=== PATIENT | female | born 1965 | race Caucasian/White ===

== ENCOUNTER 2016-12-23 18:39 | Emergency (ER) | payer OTHER ==
[~2016-12-23] VITALS: Ht 175.3 cm; Wt 120.0 kg
[~2016-12-23 18:39] MED LIST: CTP1 PO; CYCL10TA6 PO; HYDR10TA52 PO; INSDGIPEN SC; LBR10 PO; LOSA100T66 PO; SIMV40TA2 PO
[2016-12-23 18:42] VITALS: TEMP 36.7; Ht 175.3 cm; Wt 120.0 kg
[2016-12-23] MEDS ORDERED: ONDANSETRON INJ 2 MG/ML 2 ML VIAL IV STA (19:05)
[2016-12-23] MEDS ORDERED: SODIUM CHLORIDE 0.9% 1000ML 1,000 ML IV STA (19:05)
[2016-12-23] MEDS ORDERED: CEFTRIAXONE SOD INJ 1 GM ADDVIAL IV STA (19:07)
[2016-12-23] MEDS ORDERED: OXYCODONE HCL IR 5 MG TAB (IMMEDIATE RELEASE) PO STA (19:07)
[2016-12-23 19:16] LABS: BASO % 0.6 %; BASO ABS # 0.06 K/uL (0-0.2); COMPLETE YES; EOS % 5.2 %; HEMATOCRIT 39.9 % (37-47); IG% 0.3 %; LYMPH % 19.7 %; LYMPH ABS # 2.04 K/uL (1.2-3.4); MEAN CELL VOLUME 83.6 fL (80-100); MEAN CORPUSCULAR HEMOGLOBIN 29.8 pg (25-34); MEAN CORPUSCULAR HGB CONC 35.6 g/dl (32-36); MEAN PLATELET VOLUME 11.8 fL (7.4-10.4); MONO % 4.9 %; NEUT % 69.3 %; PLATELET COUNT 236 K/uL (130-400); RED BLOOD COUNT 4.77 M/uL (4.2-5.4); WHITE BLOOD COUNT 10.33 K/uL (4.8-10.8)
[2016-12-23 19:27] LABS: PARTIAL THROMBOPLASTIN RATIO 1.2; PROTHROMBIN TIME (PATIENT) 10.6 SECONDS (9.0-12.0)
[2016-12-23] MEDS ORDERED: CYCL10TA7 PO (19:31)
[2016-12-23] MEDS ORDERED: LRS10 PO (19:31)
[2016-12-23 19:35] LABS: ALT/SGPT 23 U/L (12-78); BLOOD UREA NITROGEN 10 mg/dl (7-18); BUN/CREATININE RATIO 12.5 (10-20); C-REACTIVE PROTEIN 2.59 mg/dl (0-0.29); CALCIUM 8.8 mg/dl (8.5-10.1); CARBON DIOXIDE 34 mmol/L (21-32); CHLORIDE 95 mmol/L (98-107); CREATININE 0.81 mg/dl (0.60-1.20); GLUCOSE 229 mg/dl (70-99); POTASSIUM 3.6 mmol/L (3.5-5.1); SODIUM 133 mmol/L (136-145)
[2016-12-23 19:38] LABS: ALKALINE PHOSPHATASE 75 U/L (45-117); AST/SGOT 9 U/L (15-37); CKMB/CK RATIO 3.1 (0-3.0)
--- NOTE | 2016-12-23 19:38 | DIAGNOSTIC IMAGING REPORT ---
CHEST ONE VIEW PORTABLE CLINICAL HISTORY: Abdominal pain. Chest pain. COMPARISON STUDY: Chest radiograph May 29, 2015. FINDINGS: There is no pneumothorax or pleural effusion. Lung volumes are diminished. There are mild bilateral lower lung opacities. Cardiac size is normal. There is no evidence of pulmonary edema. IMPRESSION: Mild bilateral lower lung interstitial thickening and opacities. This favors atelectasis on this hypoventilatory study although an infectious process could appear similar. Electronically signed by: Reese Freed M.D. 12/23/2016 7:37 PM Dictated Date/Time: 12/23/2016 7:36 PM
[2016-12-23] MEDS ORDERED: CEPHALEXIN 500MG HOME PACK 1 EA BTL PO ONE (20:00)
[2016-12-23] MEDS ORDERED: OXYCODONE IR HOME PACK PO ONE (20:00)
[2016-12-23] MEDS ORDERED: CEPH500C2 PO (20:14)
[2016-12-23 20:20] VITALS: BP 153/95; PULSE 87; O2SAT 99
--- NOTE | 2016-12-23 20:54 | EMERGENCY ROOM VISIT NOTE ---
History Report prepared by Elian: Ondina Yo Under the Supervision of: Dr. Mike Curry D.O. First contact with patient: 18:57 Chief Complaint: CHEST PAIN Stated Complaint: INFECTED TOOTH CHEST PAIN History of Present Illness The patient is a 51 year old female who presents to the Emergency Room with complaints of intermittent substernal chest pain that started this morning. She describes the pain as a "tight squeezing." The patient denies any cardiac history. The patient rates her discomfort as a 9/10 in severity. She adds that she has an infection in her right upper tooth that became painful yesterday, but she noticed the infection starting a while ago. She has not contacted a dentist about it yet. She states that she took penicillin earlier this evening in an attempt to relieve the infection. She states that she thinks that she is still allergic to it because her bilateral hands are edematous and her mouth is starting to feel edematous. The patient denies experiencing fevers, trouble opening or closing her mouth, cough, and shortness of breath. She denies any history of tooth infections. The patient adds that she is on 20 mg of oxycodone every 6 hours at home. Source of History: patient Onset: this morning Position: chest (substernal) Symptom Intensity: 9/10 Quality: other ("tight squeezing") Timing: intermittent Associated Symptoms: No SOB, No cough, No fevers Note: right upper tooth infection, no trouble opening or closing mouth, edema in mouth , edema in bilateral hands Review of Systems See HPI for pertinent positives & negatives. A total of 10 systems reviewed and were otherwise negative. Past Medical & Surgical Medical Problems: (1) Asthma (2) Diabetes (3) Hernia (4) History of kidney disease (5) HTN (hypertension) Surgical Problems: (1) H/O: hysterectomy (2) History of appendectomy (3) History of cholecystectomy (4) History of hysterectomy (5) Hx of tonsillectomy (6) Previous section Family History Diabetes mellitus FH: cancer FH: gallbladder disease FH: heart disease FHx: cardiovascular disease Hypertension Kidney disease Kidney stones Social History Smoking Status: Former Smoker Alcohol Use: none Marital Status: Housing Status: lives with family Occupation Status: disabled Current/Historical Medications Scheduled Atenolol (Atenolol), 50 MG PO DAILY Cephalexin Monohydrate (Keflex), 500 MG PO QID Duloxetine HCl (Duloxetine HCl), 60 MG PO DAILY Gabapentin (Gabapentin), 800 MG PO TID Glipizide (Glipizide), 5 MG PO BID Hydrocortisone (Cortef), 10 MG PO DAILY Insulin Glargine (Lantus Solostar), 44 UNITS SC HS Insulin Regular (Human) (Novolin R U-100), 1 DOSE SC UD Levothyroxine Sodium (Levothyroxine Sodium), 25 MCG PO QAM Losartan Potassium & Hydrochlo (Losartan Potassium/Hydroc), 1 TAB PO DAILY Omeprazole (Prilosec), 20 MG PO BID Oxycodone Hcl (Oxycodone Hcl), 20 MG PO QID Scheduled PRN Baclofen (Baclofen), 10 MG PO BID PRN for Muscle Spasm Cyclobenzaprine HCl (Cyclobenzaprine HCl), 10 MG PO TID PRN for Muscle Spasm Allergies Coded Allergies: Clindamycin (Verified Allergy, Intermediate, swelling, 10/04/16) Penicillins (Verified Allergy, Intermediate, swelling, 10/04/16) Chlorhexidine (Verified Allergy, Mild, RASH, 10/04/16) Adhesives (Verified Allergy, Unknown, RED SKIN, 10/04/16) Iodinated Contrast Media (Verified Allergy, Unknown, "CONTRAST DYE ALLERGY ", 10/04/16) Sulfamethoxazole w/Trimethoprim (Verified Allergy, Unknown, SWELLING, 10/04) Acetaminophen (Unverified Adverse Reaction, Intermediate, upset stomach, 10/04/16) Citric Acid (Verified Adverse Reaction, Intermediate, VOMITING, 10/04/16) Morphine (Unverified Adverse Reaction, Intermediate, vomiting and dizziness, 10/04/16) Pt states just pill form, IV form has been successful Sodium Bicarbonate (Verified Adverse Reaction, Intermediate, VOMITING, 10/04/16) Propoxyphene (Verified Adverse Reaction, Mild, CRAMPING AND VOMITING, 10/04) Aspirin (Verified Adverse Reaction, Unknown, NAUSEATED, 10/04/16) Codeine (Verified Adverse Reaction, Unknown, DIZZINESS, 10/04/16) Pseudoephedrine (Verified Adverse Reaction, Unknown, DIZZINESS, 10/04/16) Triprolidine (Verified Adverse Reaction, Unknown, DIZZINESS, 10/04/16) Physical Exam Vital Signs Date Time Temp Pulse Resp B/P Pulse Ox O2 Delivery O2 Flow Rate FiO2 12/23/16 20:20 87 16 153/95 99 12/23/16 19:15 88 12/23/16 19:11 Room Air 12/23/16 18:42 36.7 86 18 148/96 99 Room Air Physical Exam GENERAL: Patient is awake, alert, and in no acute distress. Patient is mildly anxious appearing but overall comfortable. EYES: The conjunctivae are clear. The pupils are round and reactive. EARS, NOSE, MOUTH AND THROAT: The nose is without any evidence of any deformity. Mucous membranes are moist tongue is midline. Dental caries noted in the right upper gumline. There was not erythema of the gumline. Soft tissue swelling in gumline. No trismus or facial swelling noted. NECK: The neck is nontender and supple. RESPIRATORY: Normal respiratory effort is noted there is no evidence of wheezing rhonchi or rales CARDIOVASCULAR: Regular rate and rhythm noted there no murmurs rubs or gallops normal S1 normal S2 GASTROINTESTINAL: The abdomen is soft. Bowel sounds are present in all quadrants. Abdomen is nontender MUSCULOSKELETAL/EXTREMITIES: There is no evidence of gross deformity full range of motion is noted in the hips and shoulders SKIN: Diffuse erythema noted of skin. No pedal edema appreciated. There is no obvious evidence of any rash. There are no petechiae, pallor or cyanosis noted. NEUROLOGIC: Patient is awake alert and oriented x3 Medical Decision & Procedures ER Provider Diagnostic Interpretation: X-ray results as stated below per interpretation by me and the radiologist. CHEST ONE VIEW PORTABLE IMPRESSION: Mild bilateral lower lung interstitial thickening and opacities. This favors atelectasis on this hypoventilatory study although an infectious process could appear similar. Electronically signed by: Reese Freed M.D. 12/23/2016 7:37 PM Dictated Date/Time: 12/23/2016 7:36 PM Laboratory Results 12/23/16 19:08 Red Blood Count 4.77, Mean Corpuscular Volume 83.6, Mean Corpuscular Hemoglobin 29.8, Mean Corpuscular Hemoglobin Concent 35.6, Mean Platelet Volume 11.8, Neutrophils (%) (Auto) 69.3, Lymphocytes (%) (Auto) 19.7, Monocytes (%) (Auto) 4.9, Eosinophils (%) (Auto) 5.2, Basophils (%) (Auto) 0.6, Neutrophils # (Auto) 7.15, Lymphocytes # (Auto) 2.04, Monocytes # (Auto) 0.51, Eosinophils # (Auto) 0.54, Basophils # (Auto) 0.06 12/23/16 19:08 Test 12/23/16 19:08 White Blood Count 10.33 K/uL (4.8-10.8) Red Blood Count 4.77 M/uL (4.2-5.4) Hemoglobin 14.2 g/dL (12.0-16.0) Hematocrit 39.9 % (37-47) Mean Corpuscular Volume 83.6 fL (80-100) Mean Corpuscular Hemoglobin 29.8 pg (25-34) Mean Corpuscular Hemoglobin Concent 35.6 g/dl (32-36) Platelet Count 236 K/uL (130-400) Mean Platelet Volume 11.8 fL (7.4-10.4) Neutrophils (%) (Auto) 69.3 % Lymphocytes (%) (Auto) 19.7 % Monocytes (%) (Auto) 4.9 % Eosinophils (%) (Auto) 5.2 % Basophils (%) (Auto) 0.6 % Neutrophils # (Auto) 7.15 K/uL (1.4-6.5) Lymphocytes # (Auto) 2.04 K/uL (1.2-3.4) Monocytes # (Auto) 0.51 K/uL (0.11-0.59) Eosinophils # (Auto) 0.54 K/uL (0-0.5) Basophils # (Auto) 0.06 K/uL (0-0.2) RDW Standard Deviation 41.4 fL (36.4-46.3) RDW Coefficient of Variation 13.6 % (11.5-14.5) Immature Granulocyte % (Auto) 0.3 % Immature Granulocyte # (Auto) 0.03 K/uL (0.00-0.02) Erythrocyte Sedimentation Rate 37 mm/hr (0-21) Prothrombin Time 10.6 SECONDS (9.0-12.0) Prothromb Time International Ratio 1.0 (0.9-1.1) Activated Partial Thromboplast Time 30.2 SECONDS (21.0-31.0) Partial Thromboplastin Ratio 1.2 Anion Gap 4.0 mmol/L (3-11) Est Creatinine Clear Calc Drug Dose 116.4 ml/min Estimated GFR () 98.8 Estimated GFR (Non- 85.3 BUN/Creatinine Ratio 12.5 (10-20) Calcium Level 8.8 mg/dl (8.5-10.1) Total Bilirubin 0.5 mg/dl (0.2-1) Direct Bilirubin 0.1 mg/dl (0-0.2) Aspartate Amino Transf (AST/SGOT) 9 U/L (15-37) Alanine Aminotransferase (ALT/SGPT) 23 U/L (12-78) Alkaline Phosphatase 75 U/L (45-117) Total Creatine Kinase 65 U/L (26-192) Creatine Kinase MB 2.0 ng/ml (0.5-3.6) Creatine Kinase MB Ratio 3.1 (0-3.0) Troponin I < 0.015 ng/ml (0-0.045) C-Reactive Protein 2.59 mg/dl (0-0.29) Total Protein 7.2 gm/dl (6.4-8.2) Albumin 3.2 gm/dl (3.4-5.0) Lipase 71 U/L (73-393) Laboratory results per my review. Medications Administered Medications (Trade) Dose Ordered Sig/Violet Route Start Time Stop Time Status Last Admin Dose Admin Sodium Chloride (Nss 1000ml) 1,000 ml @ 999 mls/hr Q1H1M STAT IV 12/23/16 19:05 12/23/16 20:05 DC 12/23/16 19:05 999 MLS/HR Ondansetron HCl (Zofran Inj) 4 mg NOW STAT IV 12/23/16 19:05 12/23/16 19:06 DC 12/23/16 19:19 4 MG Ceftriaxone Sodium (Rocephin Inj) 1 gm NOW STAT IV 12/23/16 19:07 12/23/16 19:09 DC 12/23/16 19:19 1 GM Oxycodone HCl (Roxicodone Immediate Rel Tab) 5 mg NOW STAT PO 12/23/16 19:07 12/23/16 19:09 DC 12/23/16 19:19 5 MG Cephalexin Monohydrate (Keflex 500MG Home Pack) 1 homepack NOW ONCE PO 12/23/16 20:00 12/23/16 20:01 DC 12/23/16 20:09 1 HOMEPACK Oxycodone HCl (Roxicodone Immediate Rel 5MG Home Pack) 1 homepack UD ONCE PO 12/23/16 20:00 12/23/16 20:01 DC 12/23/16 20:09 1 HOMEPACK ECG Indication: chest pain Rate (beats per minute): 79 Rhythm: normal sinus Findings: no ectopy, other (no acute ST segment abnormalities) Comparison ECG Date: 10/18/2013 Change: no significant change ED Course 1901: The patient was evaluated in room B4. A complete history and physical examination were performed. 1904: Ordered Zofran Inj 4 mg IV, NSS 1,000 ml @ 999 mls/hr IV 1906: Ordered Oxycodone HCl 5 mg PO, Rocephin Inj 1 gm IV 1955: Upon reevaluation, the patient is doing well. I discussed the results and treatment plan with her. She verbalized agreement of the treatment plan. She was discharged home. 1999: Ordered Oxycodone HCl 1 homepack PO, Cephalexin Monohydrate 1 homepack PO Medical Decision Prior records/ancillary studies reviewed. Triage Nursing notes reviewed. The patient's history was concerning for chest pain. Differential diagnosis: Etiologies such as cardiac ischemia, aortic dissection, pulmonary embolism, pneumonia, pneumothorax, musculoskeletal, infections, pericarditis, myocarditis , esophageal rupture, gastrointestinal, as well as others were entertained. The patient is a 51-year-old female who presented to the emergency department for an evaluation of multiple complaints. She states that she started noticing dental pain in her right upper gumline. She states that she has some ental caries in this area but recently fractured one of the teeth. She states that she 's took some penicillin to try to help with this dental problem but states that she is allergic to penicillin and started having flushing and chest discomfort. The patient's chest discomfort does not appear to be cardiac in nature. Her EKG did not show any acute abnormality and her cardiac biomarkers were negative despite having ongoing pain for quite some time. I discussed the patient's laboratory and radiographic studies with her. She was treated with IV antibiotics and IV fluids in the emergency department. On subsequent reevaluation she was feeling somewhat better. She was encouraged to rest and avoid any strenuous activity. She was encouraged to call her family as well as her primary dentist for reevaluation. She also was encouraged to return to the emergency department immediately if symptoms change worsen or the need arises. [place] Drug Monitoring Program Search Results: patient reviewed within database Impression Primary Impression: Dental caries Additional Impressions: Pain due to dental caries Allergic reaction Substernal chest pain Scribe Attestation The scribe's documentation has been prepared under my direction and personally reviewed by me in its entirety. I confirm that the note above accurately reflects all work, treatment, procedures, and medical decision making performed by me. Departure Information Dispostion Home / Self-Care Prescriptions Cephalexin Monohydrate (KEFLEX) 500 Mg Cap 500 MG PO QID, #28 CAP Prov: Mike Curry, DO 12/23/16 Referrals Shin Royal M.D. (PCP) Forms HOME CARE DOCUMENTATION FORM, IMPORTANT VISIT INFORMATION Patient Instructions [facility] Additional Instructions Continue all medications as prescribed. Continue using the antibiotic as prescribed. Call your dentist in the morning to schedule a follow-up appointment. Rest and avoid any strenuous activity. Problem Qualifiers Additional Impressions: Allergic reaction Encounter type: initial encounter Qualified Codes: T78.40XA - Allergy, unspecified, initial encounter
[2016-12-23] MEDS ORDERED: INSUINJ7 SC (21:32)
[2016-12-23] MEDS ORDERED: NRN800 PO (21:32)
[2016-12-23] MEDS ORDERED: GLC5 PO (21:32)
[2016-12-23] MEDS ORDERED: OMEP20CA9 PO (21:32)
[2016-12-23] MEDS ORDERED: OXYC20TA32 PO (21:32)
[2016-12-23] MEDS ORDERED: LEVO25TA5 PO (21:32)
[2016-12-23] MEDS ORDERED: TNR50 PO (21:32)
[2016-12-23] MEDS ORDERED: CYM60 PO (21:32)
== END 2016-12-23 20:22 | disposition home or self-care (01) ==
LOC: C.EDB 18:41
DX: T78.40XA Allergy, unspecified, initial encounter (principal); X58.XXXA Exposure to other specified factors, initial encounter; K02.9 Dental caries, unspecified; J45.909 Unspecified asthma, uncomplicated; E11.9 Type 2 diabetes mellitus without complications; I10 Essential (primary) hypertension; Z90.49 Acquired absence of other specified parts of digestive tract; Z90.710 Acquired absence of both cervix and uterus; Z83.3 Family history of diabetes mellitus; Z82.49 Family history of ischemic heart disease and other diseases of the circulatory system; Z87.891 Personal history of nicotine dependence; Z79.4 Long term (current) use of insulin; Z79.899 Other long term (current) drug therapy

== ENCOUNTER → 2017-01-09 | Outpatient (CLI) | payer OTHER ==
[~2017-01-09] MED LIST changes: +CEPH500C2 PO; +CIPR-255 PO; -CTP1 PO; -CYCL10TA6 PO; +CYCL10TA7 PO; +CYM60 PO; +DOCU-94 PO; +DULA1INJ INJ; +GLC5 PO; +INSUINJ7 SC; -LBR10 PO; +LEVO25TA5 PO; +LRS10 PO; +METR-162 PO; +NAPR375T3 PO; +NRN800 PO; +NRT25 PO; +OMEP20CA9 PO; +ONDA4TAB10 SL; +OXYC20TA32 PO; -SIMV40TA2 PO; +SRVDIN60 PO; +TNR50 PO; +VNTHFA/IN PO
[2017-01-09 12:32] LABS: ESTIMATED AVERAGE GLUCOSE 229 mg/dl; HA1C FLAG Normal (Normal)
== END | disposition home or self-care (01) ==
LOC: C.LAB1850 10:51
PROVIDERS: ATTEND Nurse Practitioner Family
DX: E11.9 Type 2 diabetes mellitus without complications (principal)

== ENCOUNTER 2017-06-03 04:08 | Emergency (ER) | payer OTHER ==
[~2017-06-03] VITALS: Ht 175.3 cm; Wt 119.0 kg
[~2017-06-03 04:08] MED LIST changes: -CIPR-255 PO; -DOCU-94 PO; -DULA1INJ INJ; -METR-162 PO; -NAPR375T3 PO; -NRT25 PO; -ONDA4TAB10 SL; -SRVDIN60 PO; -VNTHFA/IN PO
[2017-06-03 04:13] VITALS: TEMP 36.7; Ht 175.3 cm; Wt 119.0 kg
[2017-06-03] MEDS ORDERED: ONDANSETRON INJ 2 MG/ML 2 ML VIAL IV STA (04:31)
[2017-06-03] MEDS ORDERED: PANTOprazole SOD 40 MG TAB PO STA (04:31)
[2017-06-03] MEDS ORDERED: SODIUM CHLORIDE 0.9% 1000ML 1,000 ML IV ONE (04:45)
[2017-06-03 04:57] LABS: BASO % 0.2 %; BASO ABS # 0.04 K/uL (0-0.2); COMPLETE YES; EOS % 3.2 %; IG% 0.2 %; LYMPH % 10.8 %; LYMPH ABS # 1.92 K/uL (1.2-3.4); MEAN CELL VOLUME 86.3 fL (80-100); MEAN CORPUSCULAR HEMOGLOBIN 29.1 pg (25-34); MEAN CORPUSCULAR HGB CONC 33.7 g/dl (32-36); MEAN PLATELET VOLUME 12.3 fL (7.4-10.4); MONO % 7.9 %; NEUT % 77.7 %; PLATELET COUNT 250 K/uL (130-400); RED BLOOD COUNT 4.75 M/uL (4.2-5.4); WHITE BLOOD COUNT 17.78 K/uL (4.8-10.8)
[2017-06-03] MEDS ORDERED: NAPR375T3 PO (05:06)
[2017-06-03] MEDS ORDERED: DULA1INJ INJ (05:06)
[2017-06-03 05:07] LABS: PARTIAL THROMBOPLASTIN RATIO 1.2; PROTHROMBIN TIME (PATIENT) 10.7 SECONDS (9.0-12.0)
[2017-06-03] MEDS ORDERED: SRVDIN60 PO (05:09)
[2017-06-03] MEDS ORDERED: NRT25 PO (05:09)
[2017-06-03] MEDS ORDERED: VNTHFA/IN PO (05:09)
[2017-06-03 05:15] LABS: BUN/CREATININE RATIO 16.1 (10-20); CALCIUM 9.2 mg/dl (8.5-10.1); CREATININE 1.1 mg/dl (0.60-1.20); MAGNESIUM 2.2 mg/dl (1.8-2.4); POTASSIUM 3.8 mmol/L (3.5-5.1)
[2017-06-03 05:18] LABS: ALB/GLOB RATIO 0.8 (0.9-2)
--- NOTE | 2017-06-03 05:32 | EMERGENCY ROOM VISIT NOTE ---
ED Visit Note First contact with patient: 04:16 I did evaluate and examine this patient myself. I did guide management for the patient. I agree with the APC's assessment as discussed. Please see the APC's dictation for further details. I did independently review the CT scan and blood work. The patient had an elevated white blood cell count and colitis on CT scanning. She did not wish to be hospitalized. She was discharged with Cipro and Flagyl.
[2017-06-03] MEDS ORDERED: OXYCODONE HCL IR 5 MG TAB (IMMEDIATE RELEASE) PO STA (06:14)
[2017-06-03] MEDS ORDERED: CIPROFLOXACIN 500 MG TAB PO STA (06:14)
[2017-06-03] MEDS ORDERED: METRONIDAZOLE 250 MG TAB PO STA (06:14)
[2017-06-03] MEDS ORDERED: DOCU-94 PO (06:21)
[2017-06-03] MEDS ORDERED: ONDA4TAB10 SL (06:21)
[2017-06-03] MEDS ORDERED: METR-162 PO (06:21)
[2017-06-03] MEDS ORDERED: CIPR-255 PO (06:21)
[2017-06-03 06:31] VITALS: BP 136/83; PULSE 84; O2SAT 98
--- NOTE | 2017-06-03 06:36 | DIAGNOSTIC IMAGING REPORT ---
CT OF THE ABDOMEN AND PELVIS WITHOUT CONTRAST CLINICAL HISTORY: Abdominal pain. multiple surgeries. COMPARISON STUDY: CT of the abdomen and pelvis April 01, 2013 and abdominal series May 29, 2015. TECHNIQUE: Axial images of the abdomen and pelvis were obtained without IV contrast. Images were reviewed in the axial, sagittal, and coronal planes. A dose lowering technique was utilized adhering to the principles of ALARA. FINDINGS: There is no biliary ductal dilatation status post cholecystectomy. Unenhanced images of the liver, spleen, adrenal glands and pancreas are unremarkable. There are stable postoperative findings consistent with a partial nephrectomy with postoperative findings within the midpole of the left kidney. No enlarged abdominal or pelvic lymph nodes are present. There is no evidence for a bowel obstruction. There are findings consistent with a prior ventral hernia repair with mesh in at least 2 locations. Note is made of moderate wall thickening and moderate pericolonic infiltration of the descending colon. There is no free air, pneumatosis or portal venous gas. The appendix is not visualized. There is no right lower quadrant inflammation. There are no suspicious skeletal lesions. IMPRESSION: 1. Moderate wall thickening and pericolonic infiltration of the descending colon. This represents a nonspecific colitis. Differential considerations include infectious, ischemic and inflammatory etiologies. No free air, pneumatosis or portal venous gas. 2. Stable postoperative findings consistent with a partial left nephrectomy. Electronically signed by: Reese Freed M.D. 06/03/2017 6:35 AM Dictated Date/Time: 06/03/2017 6:30 AM
--- NOTE | 2017-06-04 00:23 | EMERGENCY ROOM VISIT NOTE ---
History First contact with patient: 04:16 Chief Complaint: GI ASSESSMENT Stated Complaint: BAD PAIN IN BOWELS AND BLOOD Nursing Triage Summary: c/o abd pain and " trouble with my bowels since sat." History of Present Illness The patient is a 52 year old female who presents to the Emergency Room with complaints of slowly worsening abdominal pain over the past 3-4 days. She states this is accompanied by difficulty moving her bowels. She is usually regular, but states that she has not had a bowel movement in 3-4 days. The patient is on chronic oxycodone, but this has not significantly improved her symptoms. She states that yesterday she did pass a small blood clot in her stool, which is atypical for her. She does not have a history of inflammatory bowel disease. The patient is nauseated and does have a history of multiple abdominal surgeries in the past. She rates her discomfort an 8/10. She does not identify aggravating or alleviating factors. Review of Systems More than 10 systems were reviewed and otherwise negative with the exception of history of present illness. Past Medical/Surgical History Medical Problems: (1) Asthma (2) Diabetes (3) Hernia (4) History of kidney disease (5) HTN (hypertension) Surgical Problems: (1) H/O: hysterectomy (2) History of appendectomy (3) History of cholecystectomy (4) History of hysterectomy (5) Hx of tonsillectomy (6) Previous section Family History Diabetes mellitus FH: cancer FH: gallbladder disease FH: heart disease FHx: cardiovascular disease Hypertension Kidney disease Kidney stones Social History Smoking Status: Never Smoker Alcohol Use: none Marital Status: Housing Status: lives with family Occupation Status: disabled Current/Historical Medications Scheduled Atenolol (Atenolol), 50 MG PO DAILY Ciprofloxacin Hcl (Cipro), 500 MG PO BID Cyclobenzaprine HCl (Cyclobenzaprine HCl), 10 MG PO BID Docusate Sodium (Colace), 1 CAP PO BID Dulaglutide (Trulicity), 1 DOSE INJ WK Duloxetine HCl (Duloxetine HCl), 60 MG PO DAILY Gabapentin (Gabapentin), 800 MG PO TID Hydrocortisone (Cortef), 10 MG PO DAILY Insulin Glargine (Lantus Solostar), 65 UNITS SC HS Insulin Regular (Human) (Novolin R U-100), 1 DOSE SC UD Levothyroxine Sodium (Levothyroxine Sodium), 25 MCG PO QAM Losartan Potassium & Hydrochlo (Losartan Potassium/Hydroc), 1 TAB PO DAILY Metronidazole (Flagyl), 500 MG PO TID Naproxen (Naproxen), 375 MG PO BID Omeprazole (Prilosec), 20 MG PO BID Ondasetron Odt (Zofran Odt), 4 MG SL Q6H Salmeterol Xinafoate (Serevent Diskus), 2 PUFF PO DAILY Scheduled PRN Albuterol Hfa (Ventolin Hfa), 2 PUFFS PO QID PRN for SOB/Wheezing Nortriptyline HCl (Nortriptyline HCl), 25 MG PO UD PRN for Pain Oxycodone Hcl (Oxycodone Hcl), 20 MG PO QID PRN for Pain Physical Exam Vital Signs Date Time Temp Pulse Resp B/P (MAP) Pulse Ox O2 Delivery O2 Flow Rate FiO2 06/03/17 06:31 84 18 136/83 98 06/03/17 04:13 36.7 89 18 136/77 95 Room Air Pain Rating (0-10): 0 Physical Exam VITALS: Vitals are noted on the nurse's note and reviewed by myself. Vital signs stable. GENERAL: Well-developed, well-nourished, white female who is in mild discomfort secondary to her stated complaint. Patient is cooperative with the examination. HEAD: Normocephalic atraumatic. HEART: Regular rate and rhythm without murmurs gallops or rubs. LUNGS: Clear to auscultation bilaterally without wheezes, rales or rhonchi. No retractions or accessory muscle use. ABDOMEN: Positive normal bowel sounds x 4. Soft with generalized abdominal tenderness that appears worse on the left side abdomen. No CVA tenderness. MUSCULOSKELETAL: No muscle atrophy, erythema, or edema noted. Full range of motion without joint tenderness in all extremities. Medical Decision & Procedures ER Provider Diagnostic Interpretation: CT OF THE ABDOMEN AND PELVIS WITHOUT CONTRAST CLINICAL HISTORY: Abdominal pain. multiple surgeries. COMPARISON STUDY: CT of the abdomen and pelvis April 01, 2013 and abdominal series May 29, 2015. TECHNIQUE: Axial images of the abdomen and pelvis were obtained without IV contrast. Images were reviewed in the axial, sagittal, and coronal planes. A dose lowering technique was utilized adhering to the principles of ALARA. FINDINGS: There is no biliary ductal dilatation status post cholecystectomy. Unenhanced images of the liver, spleen, adrenal glands and pancreas are unremarkable. There are stable postoperative findings consistent with a partial nephrectomy with postoperative findings within the midpole of the left kidney. No enlarged abdominal or pelvic lymph nodes are present. There is no evidence for a bowel obstruction. There are findings consistent with a prior ventral hernia repair with mesh in at least 2 locations. Note is made of moderate wall thickening and moderate pericolonic infiltration of the descending colon. There is no free air, pneumatosis or portal venous gas. The appendix is not visualized. There is no right lower quadrant inflammation. There are no suspicious skeletal lesions. IMPRESSION: 1. Moderate wall thickening and pericolonic infiltration of the descending colon. This represents a nonspecific colitis. Differential considerations include infectious, ischemic and inflammatory etiologies. No free air, pneumatosis or portal venous gas. 2. Stable postoperative findings consistent with a partial left nephrectomy. Laboratory Results 06/03/17 04:38 Red Blood Count 4.75, Mean Corpuscular Volume 86.3, Mean Corpuscular Hemoglobin 29.1, Mean Corpuscular Hemoglobin Concent 33.7, Mean Platelet Volume 12.3, Neutrophils (%) (Auto) 77.7, Lymphocytes (%) (Auto) 10.8, Monocytes (%) (Auto) 7.9, Eosinophils (%) (Auto) 3.2, Basophils (%) (Auto) 0.2, Neutrophils # (Auto) 13.80, Lymphocytes # (Auto) 1.92, Monocytes # (Auto) 1.41, Eosinophils # (Auto) 0.57, Basophils # (Auto) 0.04 06/03/17 04:38 Test 06/03/17 04:38 White Blood Count 17.78 K/uL (4.8-10.8) Red Blood Count 4.75 M/uL (4.2-5.4) Hemoglobin 13.8 g/dL (12.0-16.0) Hematocrit 41.0 % (37-47) Mean Corpuscular Volume 86.3 fL (80-100) Mean Corpuscular Hemoglobin 29.1 pg (25-34) Mean Corpuscular Hemoglobin Concent 33.7 g/dl (32-36) Platelet Count 250 K/uL (130-400) Mean Platelet Volume 12.3 fL (7.4-10.4) Neutrophils (%) (Auto) 77.7 % Lymphocytes (%) (Auto) 10.8 % Monocytes (%) (Auto) 7.9 % Eosinophils (%) (Auto) 3.2 % Basophils (%) (Auto) 0.2 % Neutrophils # (Auto) 13.80 K/uL (1.4-6.5) Lymphocytes # (Auto) 1.92 K/uL (1.2-3.4) Monocytes # (Auto) 1.41 K/uL (0.11-0.59) Eosinophils # (Auto) 0.57 K/uL (0-0.5) Basophils # (Auto) 0.04 K/uL (0-0.2) RDW Standard Deviation 44.2 fL (36.4-46.3) RDW Coefficient of Variation 14.1 % (11.5-14.5) Immature Granulocyte % (Auto) 0.2 % Immature Granulocyte # (Auto) 0.04 K/uL (0.00-0.02) Prothrombin Time 10.7 SECONDS (9.0-12.0) Prothromb Time International Ratio 1.0 (0.9-1.1) Activated Partial Thromboplast Time 31.7 SECONDS (21.0-31.0) Partial Thromboplastin Ratio 1.2 Anion Gap 7.0 mmol/L (3-11) Est Creatinine Clear Calc Drug Dose 84.4 ml/min Estimated GFR () 67.8 Estimated GFR (Non- 58.5 BUN/Creatinine Ratio 16.1 (10-20) Calcium Level 9.2 mg/dl (8.5-10.1) Magnesium Level 2.2 mg/dl (1.8-2.4) Total Bilirubin 0.5 mg/dl (0.2-1) Aspartate Amino Transf (AST/SGOT) 17 U/L (15-37) Alanine Aminotransferase (ALT/SGPT) 31 U/L (12-78) Alkaline Phosphatase 83 U/L (45-117) Total Protein 7.6 gm/dl (6.4-8.2) Albumin 3.3 gm/dl (3.4-5.0) Globulin 4.3 gm/dl (2.5-4.0) Albumin/Globulin Ratio 0.8 (0.9-2) Lipase 58 U/L (73-393) Medications Administered Medications (Trade) Dose Ordered Sig/Violet Route Start Time Stop Time Status Last Admin Dose Admin Sodium Chloride 1,000 ml @ 999 mls/hr Q1H1M ONCE IV 06/03/17 04:45 06/03/17 05:45 DC 06/03/17 04:48 999 MLS/HR Ondansetron HCl (Zofran Inj) 4 mg NOW STAT IV 06/03/17 04:31 06/03/17 04:34 DC 06/03/17 04:47 4 MG Pantoprazole Sodium (Protonix Tab) 40 mg NOW STAT PO 06/03/17 04:31 06/03/17 04:34 DC 06/03/17 04:46 40 MG Ciprofloxacin (Cipro Tab) 500 mg NOW STAT PO 06/03/17 06:14 06/03/17 06:17 DC 06/03/17 06:23 500 MG Metronidazole (Flagyl Tab) 500 mg NOW STAT PO 06/03/17 06:14 06/03/17 06:17 DC 06/03/17 06:23 500 MG Oxycodone HCl (Roxicodone Immediate Rel Tab) 15 mg NOW STAT PO 06/03/17 06:14 06/03/17 06:17 DC 06/03/17 06:23 15 MG ED Course Physical exam and history were performed. Nursing notes, EMR, and Medication List were personally reviewed. Patient appears to have left-sided abdominal pain with changes in her bowels over the past few days. The patient appears uncomfortable but not toxic. IV access was established and labs were obtained. She was hydrated and medicated as above. She has a history of multiple surgeries and because of this he did elect perform a CT scan of the abdomen and pelvis. The patient's blood work is as above and was reviewed. She does have an elevated white blood cell count of unknown cause. She does not have a significant anemia, bandemia, or gross electrolyte imbalance. Lipase and transaminases were nondiagnostic. CT scan shows a nonspecific colitis of the descending colon, which clinically does correlate with the patient's discomfort. Additionally she does have some increased stool in her colon. On reevaluation the patient felt better after hydration and antiemetics. She and I had a very lengthy conversation regarding her care. I did offer admission to the hospital she does have a white blood cell count elevation and colitis on CT. The patient had a preference for discharge home, and this appears reasonable assuming she is able to have close follow-up with her primary care physician. The patient was started on Cipro and Flagyl. She will be given Zofran and Colace as well. The patient should contact her PCP first thing this morning to arrange appropriate follow-up. She was thoroughly invited to return to the emergency department with a new, worsening, or concerning symptoms. She was pleased with this plan of first understanding. She rated her discomfort a 0/10 at the time of departure and was discharged home under the care of her male telephoto engineer who is acting as the driver service technician today. The chart was completed utilizing [employer] Speech Voice Recognition Software. Grammatical errors, random word insertions, pronoun errors, and incomplete sentences are an occasional consequence of this system due to software limitations, ambient noise, and hardware issues. Any formal questions or concerns about the content, text, or information contained within the body of this dictation should be directly addressed to the provider for clarification. . Medical Decision Differential diagnosis: Etiologies such as appendicitis, diverticulitis, PUD, biliary pathology, UTI, pancreatitis, obstruction, mesenteric ischemia, aortic pathology, infections, inflammatory bowel disease, renal colic, as well as others were entertained. Blood Pressure Screening Blood pressure disposition: Referred to PCP Impression Primary Impression: Colitis Departure Information Dispostion Home / Self-Care Condition FAIR Prescriptions Docusate Sodium (COLACE) 100 Mg Cap 1 CAP PO BID for 15 Days, #30 CAP Prov: Rc Wang PA-C 06/03/17 Ondasetron Odt (ZOFRAN ODT) 4 Mg Tab 4 MG SL Q6H for Nausea, #12 TAB Prov: Rc Wang PA-C 06/03/17 Metronidazole (FLAGYL) 500 Mg Tab 500 MG PO TID for 10 Days, #30 TAB Prov: Rc Wang PA-C 06/03/17 Ciprofloxacin Hcl (CIPRO) 500 Mg Tab 500 MG PO BID for 10 Days, #20 TAB Prov: Rc Wang PA-C 06/03/17 Forms HOME CARE DOCUMENTATION FORM, IMPORTANT VISIT INFORMATION Patient Instructions My [facility] Additional Instructions You were seen and evaluated today on an emergency basis only. This is not a substitute for, or an effort to provide, complete comprehensive medical care. It is not possible to recognize and treat all injuries or illnesses in a single emergency department visit. For this reason it is recommended that you followup with your primary care physician this week for ongoing care and evaluation. Call in the morning and let them know you were seen in the ER to help make an appointment. Ciprofloxacin(Cipro) 500mg: Take one pill twice daily for 10 days for your infection. All antibiotics can cause diarrhea. If this occurs and you feel worse or it does not resolve in 1-2 days follow up with your doctor or return to the Emergency Department as this could be signs of serious underlying problems. If you experience any pain in your tendons or any tendon injury return to the ER for re-evaluation. Any medication can cause an allergic reaction, stop the pills immediately and return to the ER for rash, hives, breathing difficulties, or swelling. Metronidazole(Flagyl) 500mg: Take one pill three times daily for 10 days for your infection. DO NOT drink alcohol or take alcohol containing products with this medication. Any medication can cause an allergic reaction, stop the pills immediately and return to the ER for rash, hives, breathing difficulties, or swelling. Zofran 1 tablet every 6 hrs as needed for nausea. Take Colace twice daily to help with passing a bowel movement You are welcome to return to the emergency department anytime with new, worsening, or concerning symptoms.
== END 2017-06-03 06:34 | disposition home or self-care (01) ==
LOC: C.EDB 04:09
DX: K52.9 Noninfective gastroenteritis and colitis, unspecified (principal); I12.9 Hypertensive chronic kidney disease with stage 1 through stage 4 chronic kidney disease, or unspecified chronic kidney disease; N18.9 Chronic kidney disease, unspecified; E11.9 Type 2 diabetes mellitus without complications; J45.909 Unspecified asthma, uncomplicated; Z90.710 Acquired absence of both cervix and uterus; Z90.49 Acquired absence of other specified parts of digestive tract; Z98.890 Other specified postprocedural states; Z79.4 Long term (current) use of insulin; Z79.899 Other long term (current) drug therapy; Z83.3 Family history of diabetes mellitus; Z80.9 Family history of malignant neoplasm, unspecified; Z83.79 Family history of other diseases of the digestive system; Z82.49 Family history of ischemic heart disease and other diseases of the circulatory system; Z84.1 Family history of disorders of kidney and ureter

== ENCOUNTER 2017-11-04 18:38 | Emergency (ER) | payer OTHER ==
[~2017-11-04] VITALS: Ht 175.3 cm; Wt 116.6 kg
[~2017-11-04 18:38] MED LIST changes: -CEPH500C2 PO; +CIPR-255 PO; -CYCL10TA7 PO; +DULA1INJ INJ; -GLC5 PO; -LEVO25TA5 PO; +LOSA100T30 PO; -LOSA100T66 PO; -LRS10 PO; +NAPR-1221 PO; -NRN800 PO; +NRT25 PO; -OMEP20CA9 PO; +ONDA4TAB10 SL; +SRVDIN60 PO; -TNR50 PO; +VNTHFA/IN PO
[2017-11-04 18:48] VITALS: TEMP 36.7; Ht 175.3 cm; Wt 116.6 kg
[2017-11-04] MEDS ORDERED: AMOX500C3 PO (19:15)
[2017-11-04] MEDS ORDERED: AMOXICILLIN HOME PACK 250 MG/TAB PO ONE (19:15)
[2017-11-04] MEDS ORDERED: CYCL10TA7 PO (19:31)
[2017-11-04] MEDS ORDERED: NVLGI/PEN SQ (19:32)
[2017-11-04] MEDS ORDERED: DULO60CA44 PO (19:32)
[2017-11-04] MEDS ORDERED: NARA2.5T2 PO (19:32)
[2017-11-04 19:34] VITALS: BP 146/89; PULSE 73; O2SAT 96
--- NOTE | 2017-11-04 19:46 | EMERGENCY ROOM VISIT NOTE ---
History First contact with patient: 18:50 Chief Complaint: BACK PAIN Stated Complaint: BACK PAIN AND TOOTH ACHE History of Present Illness The patient is a 52 year old female who presents to the Emergency Room with complaints of chronic lower back pain and right lower dental pain. The patient reports a history of chronic back pain. The patient reports that she most recently was seen at a pain clinic in [place]. One month ago, she was prescribed Dilaudid 4 mg tablets, but reports that she had nausea and vomiting with them. She did not call the clinic to advise them of this adverse reaction. The patient reports that she did not like their bedside manner, and did not plan to go back to them anyway. She reports that she was previously being treated at a pain clinic in [place], and elected to leave that practice as well because she was prescribed oxycodone and methadone at the same time. She was told that she should not take both medications at the same time. That was in May. The patient has not seen anyone for her chronic back pain between May and September when she was seen at [place]. The patient has had epidural steroid injections performed at the pain clinic in [place]. She denies any recent back injury, bladder/bowel incontinence, lower extremity weakness or saddle anesthesias. The patient also complains of right lower dental pain. She did have an appointment for this with [facility], however missed her appointment because of the recent of her mother. The patient has not been able to schedule an appointment with her dentist. She denies any difficulty swallowing, fevers or chills. She does report mild facial swelling. She admits to a history of a bad dental history. She rates her overall discomfort an 8 out of 10. Review of Systems 10 system review was performed and was negative except for pertinent positives and negatives as indicated in history of present illness Past Medical/Surgical History Medical Problems: (1) Asthma (2) Diabetes (3) Hernia (4) History of kidney disease (5) HTN (hypertension) Surgical Problems: (1) H/O: hysterectomy (2) History of appendectomy (3) History of cholecystectomy (4) History of hysterectomy (5) Hx of tonsillectomy (6) Previous section Family History Diabetes mellitus FH: cancer FH: gallbladder disease FH: heart disease FHx: cardiovascular disease Hypertension Kidney disease Kidney stones Social History Smoking Status: Never Smoker Alcohol Use: none Marital Status: Housing Status: lives with family Occupation Status: disabled Current/Historical Medications Scheduled Amoxicillin (Amoxil), 1 CAP PO TID Atenolol (Atenolol), 50 MG PO DAILY Cyclobenzaprine HCl (Cyclobenzaprine HCl), 10 MG PO BID Dulaglutide (Trulicity), 1 DOSE INJ WK Duloxetine Hcl (Cymbalta), 60 MG PO DAILY Gabapentin (Gabapentin), 800 MG PO TID Hydrocortisone (Cortef), 10 MG PO DAILY Insulin Aspart (Novolog Flexpen), SQ ACHS Insulin Glargine (Lantus Solostar), 75 UNITS SC HS Levothyroxine Sodium (Levothyroxine Sodium), 25 MCG PO QAM Losartan Potassium & Hydrochlo (Losartan Potassium/Hydroc), 1 TAB PO DAILY Omeprazole (Prilosec), 20 MG PO BID Ondasetron Odt (Zofran Odt), 4 MG SL Q6H Salmeterol Xinafoate (Serevent Diskus), 2 PUFF PO DAILY Scheduled PRN Albuterol Hfa (Ventolin Hfa), 2 PUFFS PO QID PRN for SOB/Wheezing Naratriptan Hcl (Amerge), 2.5 MG PO DAILY PRN for Physical Exam Vital Signs Date Time Temp Pulse Resp B/P (MAP) Pulse Ox O2 Delivery O2 Flow Rate FiO2 11/04/17 19:34 73 20 146/89 96 Room Air 11/04/17 18:48 36.7 82 20 150/92 100 Room Air Physical Exam CONSTITUTIONAL: Healthy and well nourished. Alert and oriented X 3 with positive affect. Patient does not appear in any acute distress. HEENT: Normocephalic, atraumatic. No facial edema or erythema noted. Pupils equal, round and reactive. Ears and nares are clear. OROPHARYNX: The patient has very poor dentition with multiple missing teeth, advanced gingivitis and dental decay. A right mandibular molar is significantly decayed to the gum level. There is no gingival fluctuance or pointing. LYMPHATICS: No submandibular, submental or cervical chain adenopathy. NECK: Full active range of motion without discomfort. RESPIRATORY: Clear to auscultation bilaterally with no wheezing, crackles, rhonchi or stridor. CARDIOVASCULAR: Regular rate and rhythm with no murmurs, rubs or gallops. MUSCULOSKELETAL: Examination shows generalized tenderness to palpation through the lower back region. Negative sitting straight leg raise. Pedal pulses are intact. Ankle plantar/dorsiflexion strength is 4 out of 5 and symmetric bilaterally. INTEGUMENTARY: No rash or other significant dermatologic conditions noted. NEUROLOGIC: Lower extremities are sensory intact. Facial sensations are intact. Medical Decision & Procedures Medications Administered Medications (Trade) Dose Ordered Sig/Violet Route Start Time Stop Time Status Last Admin Dose Admin Amoxicillin (Amoxil 250MG Home Pack) 1 homepack UD ONCE PO 11/04/17 19:15 11/04/17 19:20 DC 11/04/17 19:33 1 HOMEPACK ED Course Patient history and physical exam were performed. Nurse's notes were reviewed. Vital signs were reviewed, showing an elevated blood pressure 150/92. The patient is afebrile. The patient does not appear in any acute distress. I also reviewed the [place] Prescription Drug Monitoring Program, showing that the patient has received a prescription and's from the pain clinic in [place], as well as in [place]. Her last prescription fill was on 10/07/17 for Dilaudid 4 mg tablets, dispense 120 with no refills. The patient was advised that the emergency department would not provide any further opioid prescriptions. She was encouraged to contact her PCP or one of the pain clinics to discuss further pain management. The patient was in agreement, and voiced understanding of reasoning behind my decision. The patient was provided a prescription for amoxicillin 500 mg 3 times a day 10 days, as well as a home pack since her pharmacy is closed. It is noted that the patient reports an allergy to penicillin which causes swelling; however, she has taken amoxicillin in the past without adverse reaction. She may also take ibuprofen for additional baseline pain relief. The patient reports that she cannot tolerate Tylenol. The patient was happy with plan of care, voiced understanding of all discharge instructions, and rated her discomfort a 5 out of 10 at the conclusion of my exam. The patient was also instructed to follow-up with her PCP for blood pressure recheck. Medical Decision [place] Drug Monitoring Program Search Results: patient reviewed within database, see additional documentation Medication Reconcilliation Current Medication List: was personally reviewed by me Blood Pressure Screening Patient's blood pressure: Elevated blood pressure Blood pressure disposition: Referred to PCP Impression Primary Impression: Acute exacerbation of chronic low back pain Additional Impressions: Pain, dental Elevated blood pressure reading Departure Information Dispostion Home / Self-Care Prescriptions Amoxicillin (AMOXIL) 500 Mg Cap 1 CAP PO TID for 10 Days, #30 CAP Prov: Holden Nava PA 11/04/17 Referrals No Doctor, Assigned Forms HOME CARE DOCUMENTATION FORM, IMPORTANT VISIT INFORMATION Patient Instructions [facility] Additional Instructions Complete all amoxicillin antibiotics as prescribed: Amoxicillin 500 mg every 8 hours for 10 days. Ibuprofen 800 mg every 8 hours. Follow-up with a dentist for further definitive care. You will need to contact your pain clinic or family doctor as needed for further pain management. Problem Qualifiers
[2017-11-04] MEDS ORDERED: OMEP20CA9 PO (21:32)
[2017-11-04] MEDS ORDERED: NRN800 PO (21:32)
[2017-11-04] MEDS ORDERED: LEVO25TA5 PO (21:32)
[2017-11-04] MEDS ORDERED: TNR50 PO (21:32)
== END 2017-11-04 19:32 | disposition home or self-care (01) ==
LOC: C.EDB 18:39 → C.EDD 19:32
DX: M54.5 Low back pain (principal); K08.89 Other specified disorders of teeth and supporting structures; I10 Essential (primary) hypertension; G89.29 Other chronic pain; J45.909 Unspecified asthma, uncomplicated; E11.9 Type 2 diabetes mellitus without complications; Z79.4 Long term (current) use of insulin; Z83.3 Family history of diabetes mellitus; Z80.9 Family history of malignant neoplasm, unspecified; Z83.79 Family history of other diseases of the digestive system; Z82.49 Family history of ischemic heart disease and other diseases of the circulatory system; Z84.1 Family history of disorders of kidney and ureter

== ENCOUNTER 2020-09-13 11:20 | Observation (INO) ==
[2020-09-13] MEDS ORDERED: NITROGLYCERIN SL 0.4 MG/TAB TAB ONE (12:08)
[2020-09-13 12:17] LABS: Partial Thromboplastin Ratio 0.9; Partial Thromboplastin Time 25.6 Seconds (21.0-31.0); Prothrombin Time 10.9 Seconds (9.0-12.0)
[2020-09-13] MEDS ORDERED: ASPIRIN CHEW 324 MG PO STA (12:18)
[2020-09-13] MEDS ORDERED: ACETAMINOPHEN 500 MG TAB PO STA (12:19)
[2020-09-13] MEDS ORDERED: ONDANSETRON INJ 2 MG/ML 2 ML VIAL IV STA (12:19)
[2020-09-13 12:22] LABS: Alanine Aminotransferase 23 U/L (12-78); Aspartate Aminotransferase 10 U/L (15-37); BUN Creatinine Ratio 13.8 (10-20); Blood Urea Nitrogen 11 mg/dl (7-18); Calcium 8.8 mg/dl (8.5-10.1); Carbon Dioxide 26 mmol/L (21-32); Chloride 108 mmol/L (98-107); Creatinine Clr Calc Pharmacy 110.4 ml/min; Est GFR (African American) 100.6; Est GFR (Non-African American) 86.8; Glucose 189 mg/dl (70-99); Lipase 97 U/L (73-393); Potassium 3.4 mmol/L (3.5-5.1); Sodium 140 mmol/L (136-145)
[2020-09-13 12:27] LABS: Albumin Globulin Ratio 0.8 (0.9-2); Alkaline Phosphatase 57 U/L (45-117); Bilirubin,Total 0.3 mg/dl (0.2-1); Globulin 3.7 gm/dl (2.5-4.0); Total Protein 6.7 gm/dl (6.4-8.2); Troponin I < 0.015 ng/ml (0-0.045)
[2020-09-13] MEDS: NITROGLYCERIN 2% OINTMENT 30GM TUBE EXT SCH ×2 (12:27→17:10)
--- NOTE | 2020-09-13 12:28 | Electrocardiogram Report ---
Test Reason : Blood Pressure : / mmHG Vent. Rate : 079 BPM Atrial Rate : 079 BPM P-R Int : 142 ms QRS Dur : 080 ms QT Int : 370 ms P-R-T Axes : 036 048 025 degrees QTc Int : 424 ms Normal sinus rhythm Poor R wave progression, consider anterior TN vs. lead placement vs. LVH Abnormal ECG When compared with ECG of 23-DEC-2016 18:50, No significant change was found Confirmed by Mike Garcia ([id number]) on 09/13/2020 12:27:45 PM Referred By: ED Confirmed By:Mike Garcia
[2020-09-13 12:30] LABS: Basophils # (auto) 0.05 K/uL (0-0.2); Basophils % (auto) 0.7 %; Eosinophils # (auto) 0.43 K/uL (0-0.5); Eosinophils % (auto) 5.8 %; Hematocrit (blood only) 37.3 % (37-47); Hemoglobin 12.8 g/dL (12.0-16.0); Immature Granulocytes # (auto) 0.02 K/uL (0.00-0.02); Immature Granulocytes % (auto) 0.3 %; Lymphocytes # (auto) 1.87 K/uL (1.2-3.4); Lymphocytes % (auto) 25.2 %; Mean Corpuscular Hemoglobin 28.3 pg (25-34); Mean Corpuscular Hgb Conc 34.3 g/dL (32-36); Mean Corpuscular Volume 82.3 fL (80-100); Mean Platelet Volume 11.8 fL (7.4-10.4); Monocytes # (auto) 0.55 K/uL (0.11-0.59); Monocytes % (auto) 7.4 %; Neutrophils % (auto) 60.6 %; Platelet Count 246 K/uL (130-400); RDW Coefficient of Variation 13.6 % (11.5-14.5); RDW Standard Deviation 40.8 fL (36.4-46.3); Red Blood Count 4.53 M/uL (4.2-5.4); White Blood Count 7.42 K/uL (4.8-10.8)
--- NOTE | 2020-09-13 12:30 | XRay Report ---
XR chest 1V portable CLINICAL HISTORY: Atypical chest pain. COMPARISON STUDY: Chest radiograph March 06, 2020. FINDINGS: Lung volumes are normal. Lungs are clear. There is no pneumothorax or pleural effusion. Car diac size is normal. Mediastinal contours are normal. There is no evidence for pulmonary edema. IMPRESSION: No acute cardiopulmonary findings. ACT 112: Negative or not required by law. Electronically signed by: Reese Freed M.D. 09/13/2020 12:29 PM
[2020-09-13 12:53] LABS: Creatine Kinase MB 2.1 ng/ml (0.5-3.6)
[2020-09-13] MEDS ORDERED: POTASSIUM CHLORIDE CRTAB 20 MEQ TABCR PO STA (12:58)
[2020-09-13 13:10] LABS: D Dimer 880 ug/L FEU (0-500)
[2020-09-13] MEDS ORDERED: methylPREDNISolone 125 MG/2 ML VIAL IV STA (13:40)
[2020-09-13] MEDS ORDERED: FAMOTIDINE 20 MG in SYRINGE 3 ML IV STA (13:40)
[2020-09-13] MEDS ORDERED: diphenhydrAMINE 50 MG/ML VIAL IV STA (13:40)
--- NOTE | 2020-09-13 13:40 | History & Physical Report ---
Date of Service September 13, 2020 Assessment & Plan (1) Chest pain: Chest Pain: R/O ACS Risk factors: H/O HTN, DM II, Obesity Likely due to uncontrolled HTN Initial troponin:Negative EKG shows: Poor R wave progression, normal sinus rhythm CTA: No evidence of PE, consolidation, pleural effusion Trend serial cardiac enzymes, repeat EKG, fasting lipid panel in AM Continue NTG Start Aspirin Check ECHO Oxygen PRN NPO after midnight Cardiology consult Given ongoing chest pain, will start on IV heparin Hypertensive urgency Noncompliant with medications due to insurance Previously on losartan, clonidine, atenolol Currently not taking medications since 4 months We will start on losartan, metoprolol Also on nitroglycerin Labetalol as needed Elevated D-dimer CTA no signs of PE Venous Dopplers negative for DVT Hypokalemia Replete electrolytes as needed Check magnesium levels Splenic artery aneurysm Incidental finding on CT scan Unchanged from prior abdominal CT Follow-up as outpatient DM II Diabetic neuropathy Last HbA1C: 9.9 on 12/15/15 Noncompliant with medications secondary to insurance issues Previously on gabapentin, glipizide, NovoLog, Lantus Currently taking only NovoLog Poorly controlled Update HbA1c ISS, basal Insulin, Accu checks, Diabetic diet 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 Previously on hydrocortisone 10 mg daily Panic disorder JORGE Medical marijuana use Currently not on any medication Mood is stable GERD Continue PPI Hypothyroidism Previously on levothyroxine 25 mcg daily Check TSH, free T4 H/O Left RCC S/P resection DVT Px: IV Heparin Code Status Full Code Disposition Expected discharge home when medically stable History of Present Illness Chief Complaint: Chest Pain Primary Care Provider: Baldev Morelos MD Patient is a 55-year-old female with history of type 2 diabetes mellitus, Whitfield's disease, diabetic neuropathy, rosacea, panic disorder, migraine, and generalized anxiety disorder, medical marijuana use, hypertension, hypothyroidism, H/O Left RCC S/P resection and other medical problems presents with history of ongoing intermittent chest pain since 2 days ago. Patient described chest pain as" clenching type, gripping", retrosternal in location, mostly dull uncomfortable pain, radiates to left arm, neck and ears, worsens with exertion and improved with nitroglycerin, rest. She admits to being noncompliant with her home medications since at least 4 months secondary to insurance issues. She also states having uncontrolled blood sugar levels while at home due to not taking her long-acting insulin. She reports nausea, associated dyspnea, dizziness with chest pain. She also states having bilateral leg pain since past 2 to 3 weeks duration. Chest pain improved with nitroglycerin while in ED but patient developed headache. Denies any history of palpitations, diaphoresis, cough, hemoptysis, fever, chills, fall, double/blurry vision, vomiting, abdominal pain, change in appetite, dysuria. Currently she only takes omeprazole, Novolog and Albuterol as needed. Allergies Allergy/AdvReac Type Severity Reaction Status Date / Time clindamycin Allergy Intermediate swelling Verified 09/13/20 14:12 Penicillins Allergy Intermediate swelling Verified 09/13/20 14:12 chlorhexidine Allergy Mild RASH Verified 09/13/20 14:12 adhesive Allergy Unknown RED SKIN Verified 09/13/20 14:12 Bactrim Allergy Unknown SWELLING Verified 06/03/17 05:03 Iodinated Contrast Media Allergy Unknown "CONTRAST Verified 09/13/20 14:12 DYE ALLERGY" sulfamethoxazole Allergy Unknown SWELLING Verified 09/13/20 14:12 trimethoprim Allergy Unknown SWELLING Verified 09/13/20 14:12 acetaminophen AdvReac Intermediate upset Unverified 09/13/20 14:12 stomach citric acid AdvReac Intermediate VOMITING Verified 09/13/20 14:12 morphine AdvReac Intermediate vomiting Unverified 09/13/20 14:12 and dizziness sodium bicarbonate AdvReac Intermediate VOMITING Verified 09/13/20 14:12 propoxyphene AdvReac Mild CRAMPING Verified 09/13/20 14:12 AND VOMITING aspirin AdvReac Unknown NAUSEATED Verified 09/13/20 14:12 codeine AdvReac Unknown DIZZINESS Verified 09/13/20 14:12 pseudoephedrine AdvReac Unknown DIZZINESS Verified 09/13/20 14:12 triprolidine AdvReac Unknown DIZZINESS Verified 09/13/20 14:12 Home Medications Medication Instructions Recorded Confirmed Type albuterol sulfate 90 mcg/actuation 2 puffs INHALATION Q6H PRN #1 gm 06/04/19 09/13/20 History aerosol inhaler blood-glucose meter #1 ea 06/04/19 06/04/19 History lancets 30 gauge #25 ea 06/04/19 06/04/19 History insulin aspart U-100 100 unit/mL 6 units SUBCUT TIDM #5 ml 09/04/19 09/13/20 History (3 mL) subcutaneous pen omeprazole 20 mg capsule,delayed 20 mg PO QAM cap 09/04/19 09/13/20 History release Past Med/Surg History Medical History Asthma Colitis Diabetes History of kidney disease HTN (hypertension) Hyperglycemia Kidney malignancy Low back pain with sciatica Surgical History H/O: hysterectomy History of appendectomy History of cholecystectomy Hx of tonsillectomy Previous section S/P hernia repair Family History Father Hypertension Coronary heart disease Stroke Mother Hypertension Diabetes CHF (congestive heart failure) Social History Smoking Status: Heavy tobacco smoker Tobacco Type: Cigarettes Second Hand Exposure: No; Do You Dip or Chew Tobacco: No; Tobacco Cessation Education Requested by Patient: Yes Hx Alcohol Use: No Hx Substance Use: Yes Substance Use Type Other:: LEGAL MARIJUANA CARD Communication Ability: Effective Beliefs That Will Affect Care: None Current Living Situation: Spouse Feels Safe at Home: Yes Safety Concerns: Feels Safe At This Time Assistive Devices: Cane Review of Systems Review of Systems: All systems reviewed & are unremarkable except as noted in HPI & below Physical Exam Physical Exam: Physical Exam: Vitals signs as noted above General Appearance:Obese, no apparent distress Head: normocephalic, Atraumatic Eyes: normal inspection, EOMI Neck: supple, Trachea midline Respiratory/Chest: Normal breath sounds, CTA, No accessory muscle use Cardiovascular: S1, S2, No murmur Abdomen/GI:Soft, Non tender, Bowel sounds present Extremities/Musculoskelatal:normal inspection, Trace B/L LE edema Neurologic/Psych:AAOX3, grossly no focal neurological deficits Skin: normal color, warm Results & Data Results & Data ([facility]) Vital Signs (Past 12 Hours) Vital Signs Temp Pulse Resp BP Pulse Ox 09/13/20 13:00 82 20 130/88 96 09/13/20 12:32 79 21 147/89 H 09/13/20 12:07 83 15 156/97 H 99 09/13/20 12:00 87 24 98 09/13/20 11:50 81 23 147/101 H 98 09/13/20 11:39 96 09/13/20 11:34 85 21 97 09/13/20 11:26 93 H 16 172/100 H 97 09/13/20 11:22 36.8 C 88 12 172/100 H 96 Laboratory Results Short CBC 09/13/20 Range/Units 11:50 WBC 7.42 (4.8-10.8) K/uL Hgb 12.8 (12.0-16.0) g/dL Hct 37.3 (37-47) % Plt Count 246 (130-400) K/uL BMP 09/13/20 11:50 Sodium 140 Potassium 3.4 L Chloride 108 H Carbon Dioxide 26 BUN 11 Creatinine 0.78 Glucose 189 H Calcium 8.8 Cardiac Enzymes 09/13/20 09/13/20 Range/Units 11:50 11:50 Total Creatine Kinase 76 (26-192) U/L CK-MB (CK-2) 2.1 (0.5-3.6) ng/ml Troponin I < 0.015 (0-0.045) ng/ml Liver Function 09/13/20 Range/Units 11:50 Total Bilirubin 0.3 (0.2-1) mg/dl AST 10 L (15-37) U/L ALT 23 (12-78) U/L Alkaline Phosphatase 57 (45-117) U/L Albumin 3.0 L (3.4-5.0) gm/dl Diagnostic Findings CTA:There is no evidence of pulmonary embolus in the main, lobar, or segmental pulmonary arteries. There is no airspace consolidation or pleural effusion. There is a 1.4 cm peripherally calcified splenic artery aneurysm, unchanged from a previous abdominal CT scan. Venous Doppler:No evidence of deep venous thrombus within the left lower e xtremity. ECG Additional Comments: EKG: Normal sinus rhythm Poor R wave progression QTc 424 (1) Chest pain Chest pain type: unspecified Qualified Code(s): R07.9 - Chest pain, unspecified
[2020-09-13] MEDS ORDERED: SODIUM CHLORIDE 0.9% 500 ML IV ONE (13:41)
[2020-09-13] MEDS ORDERED: FAMOTIDINE 20MG/5ML IV PUSH IV ONE (14:09)
--- NOTE | 2020-09-13 14:15 | Ultrasound Report ---
LEFT LOWER EXTREMITY VENOUS DOPPLER CLINICAL HISTORY: Left leg swelling. COMPARISON STUDY: No previous studies for comparison. TECHNIQUE: Sonography of the deep venous system of the left lower extremity was performed. Compressi on and augmentation were evaluated. FINDINGS: The left common femoral, superficial femoral and popliteal veins were compressible. Augmen tation was normal. Flow was shown within the deep calf vessels. IMPRESSION: No evidence of deep venous thrombus within the left lower extremity. ACT 112: Negative or not required by law. Electronically signed by: Reese Freed M.D. 09/13/2020 2:14 PM
[2020-09-13] MEDS ORDERED: OPTIRAY 320 125ml IV ONE (14:32)
--- NOTE | 2020-09-13 14:43 | CT Scan Report ---
CT ANGIOGRAM OF THE CHEST CLINICAL HISTORY: Atypical chest pain. Left lower extremity edema. COMPARISON STUDY: Chest x-ray dated 09/13/2020. Abdominal CT dated 03/06/2020. TECHNIQUE: Following the IV administration of 120 cc of Optiray 320, CT angiogram of the chest was pe rformed from the upper abdomen to the thoracic inlet utilizing the pulmonary embolus protocol. Images are reviewed in the axial, sagittal, and coronal planes. 3-D MIPS images are created and assessed. I V contrast was administered without complication. The patient was premedicated for a reported history of contrast allergy. A dose lowering technique was utilized adhering to the principles of ALARA. CT DOSE: 874.57 mGy.cm FINDINGS: Thyroid: Mildly atrophic. Thoracic aorta: The thoracic aorta is normal in caliber and demonstrates standard 3-vessel arch anato my. No dissection is seen. Pulmonary vasculature: The pulmonary trunk is normal in caliber. There are no filling defects identif ied in main, lobar, or segmental pulmonary branches to suggest pulmonary embolus. Heart: The heart is normal in size and without pericardial effusion. Lungs and pleural spaces: The lungs and pleural spaces are clear noting bibasilar atelectasis. The tr achea and central airways are patent. Mediastinum: There is no mediastinal lymphadenopathy. Lida: Clear. Axillae: There is no axillary lymphadenopathy. Upper abdomen: There is a tiny hiatal hernia. A 1.4 cm peripherally calcified splenic artery aneurysm is seen on image #33. Skeletal structures: No lytic or blastic bony lesions are seen. IMPRESSION: 1. There is no evidence of pulmonary embolus in the main, lobar, or segmental pulmonary arteries. 2. There is no airspace consolidation or pleural effusion. 3. There is a 1.4 cm peripherally calcified splenic artery aneurysm, unchanged from a previous abdomi nal CT scan. ACT 112: Negative or not required by law. Electronically signed by: Tremayne Arnold M.D. 09/13/2020 2:41 PM
[2020-09-13] MEDS ORDERED: INFLUENZA ADMINISTRATION CHARGE ONE (16:30)
[2020-09-13] MEDS ORDERED: INFLUENZA VIRUS QUAD VACCINE 0.5 ML SYR IM ONE (16:30)
[2020-09-13] MEDS ORDERED: ACETAMINOPHEN 325 MG TAB PO PRN (16:38)
[2020-09-13] MEDS ORDERED: GLUCAGON FOR INJ 1 MG VIAL SQ PRN (16:38)
[2020-09-13] MEDS ORDERED: GLUCOSE 10 TABS/TUBE PO PRN (16:38)
[2020-09-13] MEDS ORDERED: GLUCOSE 40% GEL 15 GM TUBE PO PRN (16:38)
[2020-09-13] MEDS ORDERED: DEXTROSE 50% 50 ML SYRINGE IV PRN (16:38)
[2020-09-13] MEDS ORDERED: CARBOHYDRATES FOR HYPOGLYCEMIA PO PRN (16:38)
[2020-09-13] MEDS ORDERED: MoRPHine SULFATE 2 MG/ML CARP IV ONE (16:39)
[2020-09-13] MEDS ORDERED: MoRPHine SULFATE 2 MG/ML CARP ONE (16:41)
--- NOTE | 2020-09-13 16:51 | Emergency Department Note ---
History of Present Illness General Chief Complaint: Chest Pain Stated Complaint: CHEST PAIN Time Seen by Provider: 09/13/20 12:00 Source: patient, EMS, RN notes reviewed and old records reviewed Mode of arrival: EMS Limitations: no limitations History of Present Illness Provider Complaint: chest pain Onset (ago): day(s) 3 Duration: intermittent and now resolved Onset: during exertion Pain Location: substernal Pain Radiation: LUE Severity: moderate Maximum Pain Intensity: 4 Current Pain Intensity: 4 Quality: + aching Relieved By: + nitroglycerin Exacerbated By: + movement Associated symptoms: no vomiting, no diaphoresis and no palpitations Treatments prior to arrival: nitroglycerin This is a 55-year-old female who presents emergency department complaining of chest pain. The patient reports she has had chest pain for the past 2 or 3 days. She reports that the chest pain is a burning sensation that radiates to her left arm. She reports movement makes the pain worse however immobilization and rest makes the pain better. She was given nitro prior to arrival with complete resolution of the chest pain. The patient is currently pain-free. Home Medications Medication Instructions Recorded Confirmed Type albuterol sulfate 90 mcg/actuation 2 puffs INHALATION Q6H PRN #1 gm 06/04/19 09/13/20 History aerosol inhaler blood-glucose meter #1 ea 06/04/19 06/04/19 History lancets 30 gauge #25 ea 06/04/19 06/04/19 History insulin aspart U-100 100 unit/mL 6 units SUBCUT TIDM #5 ml 09/04/19 09/13/20 History (3 mL) subcutaneous pen omeprazole 20 mg capsule,delayed 20 mg PO QAM cap 09/04/19 09/13/20 History release Allergies Allergy/AdvReac Type Severity Reaction Status Date / Time clindamycin Allergy Intermediate swelling Verified 09/13/20 14:12 Penicillins Allergy Intermediate swelling Verified 09/13/20 14:12 chlorhexidine Allergy Mild RASH Verified 09/13/20 14:12 adhesive Allergy Unknown RED SKIN Verified 09/13/20 14:12 Bactrim Allergy Unknown SWELLING Verified 06/03/17 05:03 Iodinated Contrast Media Allergy Unknown "CONTRAST Verified 09/13/20 14:12 DYE ALLERGY" sulfamethoxazole Allergy Unknown SWELLING Verified 09/13/20 14:12 trimethoprim Allergy Unknown SWELLING Verified 09/13/20 14:12 acetaminophen AdvReac Intermediate upset Unverified 09/13/20 14:12 stomach citric acid AdvReac Intermediate VOMITING Verified 09/13/20 14:12 morphine AdvReac Intermediate vomiting Unverified 09/13/20 14:12 and dizziness sodium bicarbonate AdvReac Intermediate VOMITING Verified 09/13/20 14:12 propoxyphene AdvReac Mild CRAMPING Verified 09/13/20 14:12 AND VOMITING aspirin AdvReac Unknown NAUSEATED Verified 09/13/20 14:12 codeine AdvReac Unknown DIZZINESS Verified 09/13/20 14:12 pseudoephedrine AdvReac Unknown DIZZINESS Verified 09/13/20 14:12 triprolidine AdvReac Unknown DIZZINESS Verified 09/13/20 14:12 Past Med/Surg History Medical History Asthma Colitis Diabetes History of kidney disease HTN (hypertension) Hyperglycemia Kidney malignancy Low back pain with sciatica Surgical History H/O: hysterectomy History of appendectomy History of cholecystectomy Hx of tonsillectomy Previous section S/P hernia repair Family History Father Hypertension Coronary heart disease Stroke Mother Hypertension Diabetes CHF (congestive heart failure) Social History Smoking Status: Heavy tobacco smoker Tobacco Type: Cigarettes Second Hand Exposure: No; Do You Dip or Chew Tobacco: No; Tobacco Cessation Education Requested by Patient: Yes Hx Alcohol Use: No Hx Substance Use: Yes Substance Use Type Other:: LEGAL MARIJUANA CARD Communication Ability: Effective Beliefs That Will Affect Care: None Current Living Situation: Spouse Feels Safe at Home: Yes Safety Concerns: Feels Safe At This Time Assistive Devices: None Review of Systems A total of 10 systems reviewed and were otherwise negative Physical Exam Vital Signs Vital Signs - 24 hr 09/13/20 11:22 09/13/20 11:26 09/13/20 11:34 Temperature 36.8 C Temperature Source Oral Pulse Rate 88 93 H 85 Pulse Rate from SpO2 Sensor 90 86 Respiratory Rate 12 16 21 Blood Pressure 172/100 H 172/100 H Blood Pressure Mean 124 123 Blood Pressure Position Sitting Pulse Oximetry 96 97 97 Oxygen Delivery Method Room Air Sepsis Recent Fever Within 48 Hours No Sepsis New/Unexplained Change in Mental Status N/A Sepsis Action Taken by Nursing No Action Required 09/13/20 11:39 09/13/20 11:50 09/13/20 12:00 Temperature Temperature Source Pulse Rate 81 87 Pulse Rate from SpO2 Sensor 83 86 Respiratory Rate 23 24 Blood Pressure 147/101 H Blood Pressure Mean 115 Blood Pressure Position Pulse Oximetry 96 98 98 Oxygen Delivery Method Room Air Sepsis Recent Fever Within 48 Hours Sepsis New/Unexplained Change in Mental Status Sepsis Action Taken by Nursing 09/13/20 12:07 09/13/20 12:32 09/13/20 13:00 Temperature Temperature Source Pulse Rate 83 79 82 Pulse Rate from SpO2 Sensor 81 81 Respiratory Rate 15 21 20 Blood Pressure 156/97 H 147/89 H 130/88 Blood Pressure Mean 127 102 99 Blood Pressure Position Pulse Oximetry 99 96 Oxygen Delivery Method Sepsis Recent Fever Within 48 Hours Sepsis New/Unexplained Change in Mental Status Sepsis Action Taken by Nursing 09/13/20 13:30 Temperature Temperature Source Pulse Rate 100 H Pulse Rate from SpO2 Sensor 83 Respiratory Rate 22 Blood Pressure 134/93 Blood Pressure Mean 114 Blood Pressure Position Pulse Oximetry 93 Oxygen Delivery Method Room Air Sepsis Recent Fever Within 48 Hours Sepsis New/Unexplained Change in Mental Status Sepsis Action Taken by Nursing VITAL SIGNS - Vital signs and nursing notes were reviewed. GENERAL - 55-year-old female appearing stated age who is in no acute distress. Communicates well with provider and answers questions appropriately. SKIN - Without rashes. HEAD - NC/AT. EYES - PERRL with EOMI bilaterally. Sclera anicteric. Palpebral conjunctiva pink and moist with no injection noted. EARS - No deformities of external structures noted on gross examination bilaterally. No pain elicited with palpation of the tragus bilaterally. External auditory canals without discharge or otorrhea. Tympanic membranes pearly garcia without retraction or bulging. No fluid or purulent material visualized behind the TM. Handle of malleus, umbo, cone of light, pars tensa/flaccid all easily visualized. NOSE - Midline and without cyanosis. No epistaxis or purulent drainage noted. Septum midline without deviation or septal hematoma noted. MOUTH/OROPHARYNX - Without perioral cyanosis. Buccal mucosa pink and moist and without leukoplakia. Tongue midline with equal elevation of palate bilaterally. No tonsillar hypertrophy, erythema, or exudates noted. dentition noted. NECK - Neck with FROM. Supple to palpation. lymphadenopathy noted. No nuchal rigidity. LUNGS - Chest wall symmetric without accessory muscle use, intercostals retractions, or central cyanosis. Normal vesicular breath sounds CTA B/L. No wheezes, rales, or rhonchi appreciated. CARDIAC - RRR with S1/S2. No murmur, rubs, or gallops appreciated. ABDOMEN - Abdominal contour without pulsations or visible masses. BS normoactive all four quadrants. No tenderness, palpable masses, hepatosplenomegaly, or ascites noted. EXTREMITIES - No clubbing or peripheral cyanosis. No pretibial edema present. +3/5 radial, posterior tibial, and dorsalis pedis pulses palpated throughout. +5/5 strength noted in UE/LE bilaterally. NEUROLOGIC - Cranial nerves II through XII grossly intact. Sensory intact to light touch throughout. Patellar reflexes +2/4. PSYCH - A&Ox3 and cooperates fully with examiner. Pt is very pleasant and interacts well with examiner. Course Administered Medications Acetaminophen (Acetaminophen 325 Mg Tab) 650 mg PO Q4H PRN PRN Reason: Pain or Fever Stop: 10/13/20 16:37 Last Admin: 09/14/20 08:15 Dose: 650 mg Documented by: [id number] Aspirin (Aspirin 81 Mg Ectab) [facility] [place]: 10/14/20 08:59 Last Admin: 09/14/20 08:15 Dose: 81 mg Documented by: [id number] Atorvastatin Calcium (Atorvastatin 40 Mg Tab) 40 [facility] [place] Stop: 10/14/20 10:44 Last Admin: 09/14/20 11:12 Dose: 40 mg Documented by: [id number] Insulin Aspart (Insulin Aspart 100 Units/Ml 3 Ml Pen) [facility] Stop: 10/13/20 16:37 Last Admin: 09/14/20 12:10 Dose: Not Given Documented by: [id number] Cosigned by: [id number] Admin: 09/14/20 08:15 Dose: Not Given Documented by: [id number] Cosigned by: [id number] Admin: 09/13/20 23:06 Dose: 8 units Documented by: [id number] Cosigned by: [id number] Admin: 09/13/20 21:19 Dose: 17 units Documented by: [id number] Cosigned by: [id number] Admin: 09/13/20 18:58 Dose: 4 units Documented by: [id number] Cosigned by: [id number] Labetalol HCl (Labetalol Hcl Iv 5 Mg/Ml 20ml) 10 mg IV Q6H PRN PRN Reason: Hypertension Stop: 10/13/20 17:09 Last Admin: 09/14/20 16:07 Dose: 10 mg Documented by: [id number] Cosigned by: [id number] Losartan Potassium (Losartan Potassium 50 Mg Tab) 50 mg PO QAM [facility] Stop: 10/14/20 08:59 Last Admin: 09/14/20 07:35 Dose: 50 mg Documented by: [id number] Metoprolol Tartrate (Metoprolol Tartrate 50 Mg Tab) 50 mg PO BID [facility] Stop: 10/13/20 20:59 Last Admin: 09/14/20 08:16 Dose: Not Given Documented by: [id number] Admin: 09/13/20 21:18 Dose: 50 mg Documented by: [id number] Nitroglycerin (Nitroglycerin Sl 0.4 Mg/Tab Tab) 0.4 mg SL PRN PRN PRN Reason: chest pain Stop: 10/13/20 17:08 Last Admin: 09/13/20 17:16 Dose: 0.4 mg Documented by: [id number] Ondansetron HCl (Ondansetron Inj 2 Mg/Ml 2 Ml Vial) 4 mg IV Q6H PRN PRN Reason: Nausea Stop: 10/13/20 16:37 Last Admin: 09/14/20 08:17 Dose: 4 mg Documented by: [id number] Admin: 09/14/20 04:30 Dose: 4 mg Documented by: [id number] Admin: 09/13/20 17:17 Dose: 4 mg Documented by: [id number] Pantoprazole Sodium (Pantoprazole 40 Mg Tab) 40 mg PO QAM [facility] Stop: 10/14/20 08:59 Last Admin: 09/14/20 08:21 Dose: 40 mg Documented by: [id number] Tramadol HCl (Tramadol Hcl 50 Mg Tablet) 50 mg PO Q4H PRN PRN Reason: Pain Stop: 10/13/20 20:17 Last Admin: 09/14/20 16:07 Dose: 50 mg Documented by: [id number] Admin: 09/14/20 11:12 Dose: 50 mg Documented by: [id number] Admin: 09/14/20 04:30 Dose: 50 mg Documented by: [id number] Admin: 09/13/20 21:17 Dose: 50 mg Documented by: [id number] Discontinued Medications Acetaminophen (Acetaminophen 500 Mg Tab) 1,000 mg PO NOW STA Stop: 09/13/20 12:20 Last Admin: 09/13/20 12:29 Dose: 1,000 mg Documented by: [id number] Aspirin (Aspirin Chew 324 Mg) 324 mg PO NOW STA Stop: 09/13/20 12:19 Last Admin: 09/13/20 12:27 Dose: 324 mg Documented by: [id number] Atropine Sulfate (Atropine Sulfate 0.1 Mg/Ml 10ml Syr) Confirm Administered Dose 2 mg IV .STK-MED ONE Stop: 09/14/20 12:34 Last Admin: 09/14/20 13:47 Dose: 0.01 mg Documented by: [id number] Diphenhydramine HCl (Diphenhydramine 50 Mg/Ml Vial) 50 mg IV NOW STA Stop: 09/13/20 13:41 Last Admin: 09/13/20 14:15 Dose: 50 mg Documented by: [id number] Dobutamine HCl (Dobutamine Hcl 12.5 Mg/Ml 20 Ml Vial) Confirm Administered Dose 250 mg IV .STK-MED ONE Stop: 09/14/20 12:34 Last Admin: 09/14/20 13:11 Dose: 40 mcg.per.kg Documented by: [id number] Famotidine (Famotidine 20mg/5ml Iv Push) Confirm Administered Dose 20 mg IV .STK-MED ONE Stop: 09/13/20 14:10 Last Admin: 09/13/20 14:40 Dose: Not Given Documented by: [id number] Heparin Sodium/Dextrose (Heparin Iv Standard *No* Bolus) 1 ea IV Q15M [facility]; Protocol Stop: 09/13/20 17:40 Last Admin: 09/13/20 18:59 Dose: Not Given Documented by: [id number] Admin: 09/13/20 18:57 Dose: Not Given Documented by: [id number] Admin: 09/13/20 17:45 Dose: Not Given Documented by: [id number] Famotidine 20 mg/ Syringe 5 mls @ 2.5 mls/min IV NOW STA Stop: 09/13/20 13:41 Last Admin: 09/13/20 14:15 Dose: 2.5 mls/min Documented by: [id number] Sodium Chloride (Nss) 500 mls @ 999 mls/hr IV .Q31M ONE Stop: 09/13/20 14:11 Last Admin: 09/13/20 17:11 Dose: Not Given Documented by: [id number] Heparin Sodium/Dextrose (Heparin Sodium/Dextrose) 25,000 units in 500 mls @ 30 mls/hr IV .[id number] [facility]; Protocol Stop: 10/13/20 17:29 Last Admin: 09/14/20 12:14 Dose: Not Given Documented by: [id number] Titration: 09/14/20 07:01 Dose: 1,500 units/hr, 30 mls/hr Documented by: [id number] Cosigned by: [id number] Titration: 09/14/20 00:38 Dose: 1,500 units/hr, 30 mls/hr Documented by: [id number] Cosigned by: [id number] Titration: 09/13/20 18:56 Dose: 1,500 units/hr, 30 mls/hr Documented by: [id number] Cosigned by: [id number] Admin: 09/13/20 17:43 Dose: 1,500 units/hr, 30 mls/hr Documented by: [id number] Cosigned by: [id number] Insulin Human Regular 10 units (/ Syringe) 10 mls @ 5 mls/min IV 2100 ONE Stop: 09/13/20 21:01 Last Admin: 09/13/20 21:15 Dose: 5 mls/min Documented by: [id number] Cosigned by: [id number] Insulin Human Regular 5 units/ (Syringe) 5 mls @ 30 mls/min IV NOW ONE Stop: 09/14/20 00:31 Last Admin: 09/14/20 00:43 Dose: 30 mls/min Documented by: [id number] Cosigned by: [id number] Influenza Virus Vaccine Quadrival (Influenza Virus Quad Vaccine 0.5 Ml Syr) 0.5 ml IM .ONCE ONE Stop: 09/13/20 16:31 Last Admin: 09/13/20 17:11 Dose: Not Given Documented by: [id number] Insulin Aspart (Insulin Aspart 100 Units/Ml 3 Ml Pen) 0 units SC 0000,0400 [facility] Stop: 09/14/20 04:01 Last Admin: 09/14/20 04:13 Dose: 7 units Documented by: [id number] Cosigned by: [id number] Admin: 09/14/20 00:46 Dose: 12 units Documented by: [id number] Cosigned by: [id number] Insulin Glargine (Insulin Glargine Solostar 100 Units/Ml 3 Ml Pen) 28 units SC BID [facility] Stop: 10/13/20 20:59 Last Admin: 09/13/20 21:16 Dose: 28 units Documented by: [id number] Cosigned by: [id number] Ioversol (Optiray 320 125ml) 120 ml IV ONCE ONE Stop: 09/13/20 14:33 Last Admin: 09/13/20 14:32 Dose: 120 ml Documented by: [id number] Lorazepam (Lorazepam 0.5 Mg Tab) 0.5 mg PO NOW STA Stop: 09/13/20 23:45 Last Admin: 09/14/20 00:15 Dose: 0.5 mg Documented by: [id number] Losartan Potassium (Losartan Potassium 50 Mg Tab) 50 mg PO ONE ONE Stop: 09/13/20 17:01 Last Admin: 09/13/20 17:43 Dose: 50 mg Documented by: [id number] Methylprednisolone (Methylprednisolone 125 Mg/2 Ml Vial) 125 mg IV NOW STA Stop: 09/13/20 13:41 Last Admin: 09/13/20 14:15 Dose: 125 mg Documented by: [id number] Metoprolol Tartrate (Metoprolol Tartrate 1 Mg/Ml Vial) Confirm Administered Dose 10 mg IV .STK-MED ONE Stop: 09/14/20 12:34 Last Admin: 09/14/20 13:20 Dose: 5 mg Documented by: [id number] Morphine Sulfate (Morphine Sulfate 2 Mg/Ml Carp) 2 mg IV ONE ONE Stop: 09/13/20 16:40 Last Admin: 09/13/20 17:12 Dose: Not Given Documented by: [id number] Morphine Sulfate (Morphine Sulfate 2 Mg/Ml Carp) Confirm Administered Dose 2 mg .ROUTE .STK-MED ONE Stop: 09/13/20 16:42 Last Admin: 09/13/20 16:52 Dose: 2 mg Documented by: [id number] Nitroglycerin (Nitroglycerin Sl 0.4 Mg/Tab Tab) Confirm Administered Dose 0.4 mg .ROUTE .STK-MED ONE Stop: 09/13/20 12:09 Last Admin: 09/13/20 12:11 Dose: 0.4 mg Documented by: [id number] Nitroglycerin (Nitroglycerin 2% Ointment 30gm Tube) 1 inch EXT Q6H [facility] Stop: 10/13/20 12:29 Last Admin: 09/14/20 06:18 Dose: 1 inch Documented by: [id number] Admin: 09/14/20 00:17 Dose: Not Given Documented by: [id number] Admin: 09/13/20 17:10 Dose: 1 inch Documented by: [id number] Admin: 09/13/20 12:27 Dose: 1 inch Documented by: [id number] Ondansetron HCl (Ondansetron Inj 2 Mg/Ml 2 Ml Vial) 4 mg IV NOW STA Stop: 09/13/20 12:20 Last Admin: 09/13/20 12:26 Dose: 4 mg Documented by: [id number] Perflutren Lipid Microsphere (Perflutren Lipid Microsphere (Definity)) 2 ml IV ONCE ONE Stop: 09/14/20 13:43 Last Admin: 09/14/20 13:42 Dose: 2 ml Documented by: [id number] Potassium Chloride (Potassium Chloride Crtab 20 Meq Tabcr) 40 meq PO NOW STA Stop: 09/13/20 12:59 Last Admin: 09/13/20 17:11 Dose: Not Given Documented by: [id number] Potassium Chloride (Potassium Chloride Crtab 20 Meq Tabcr) 40 meq PO ONE ONE Stop: 09/13/20 20:53 Last Admin: 09/13/20 21:16 Dose: 40 meq Documented by: [id number] Medical Decision Making Differential Diagnosis + fracture of rib, + pneumothorax, + stable angina, + unstable angina pectoris, + atypical chest pain, + st elevation myocardial infarction, + costochondritis, + chest pain, + biliary colic, + cardiac ischemia, + myocarditis, + pericarditis, + costochondritis, + pleurisy, + aortic dissection, + pulmonary embolism, + pneumonia, + musculoskeletal, + infections, + cholecystitis, + panc reatitis and + esophageal rupture Medical Records Attestation: I reviewed the patient's medical records. Home Medications Current Medication List: was personally reviewed by me Laboratory Data Attestation: I reviewed the patient's lab results. Result diagrams: 09/14/20 03:54 09/14/20 03:54 Labs: Lab Results 1109/13/20 09/13/20 Range/Units 11:50 11:50 11:50 WBC 7.42 (4.8-10.8) K/uL RBC 4.53 (4.2-5.4) M/uL Hgb 12.8 (12.0-16.0) g/dL Hct 37.3 (37-47) % MCV 82.3 (80-100) fL MCH 28.3 (25-34) pg MCHC 34.3 (32-36) g/dL RDW Std Deviation 40.8 (36.4-46.3) fL RDW Coeff of Adin 13.6 (11.5-14.5) % Plt Count 246 (130-400) K/uL MPV 11.8 H (7.4-10.4) fL Immature Gran % (Auto) 0.3 % Neut % (Auto) 60.6 % Lymph % (Auto) 25.2 % Rabun % (Auto) 7.4 % Eos % (Auto) 5.8 % Baso % (Auto) 0.7 % Neut # (Auto) 4.50 (1.4-6.5) K/uL Lymph # (Auto) 1.87 (1.2-3.4) K/uL Rabun # (Auto) 0.55 (0.11-0.59) K/uL Eos # (Auto) 0.43 (0-0.5) K/uL Baso # (Auto) 0.05 (0-0.2) K/uL Immature Gran # (Auto) 0.02 (0.00-0.02) K/uL PT 10.9 (9.0-12.0) Seconds INR 1.0 (0.9-1.1) APTT 25.6 (21.0-31.0) Seconds PTT Ratio 0.9 D-Dimer (0-500) ug/L FEU Sodium 140 (136-145) mmol/L Potassium 3.4 L (3.5-5.1) mmol/L Chloride 108 H (98-107) mmol/L Carbon Dioxide 26 (21-32) mmol/L Anion Gap 7.0 (3-11) BUN 11 (7-18) mg/dl Creatinine 0.78 (0.6-1.2) mg/dl Est Cr Clr Drug Dosing 110.4 ml/min Est GFR ( Amer) 100.6 Est GFR (Non-Af Amer) 86.8 BUN/Creatinine Ratio 13.8 (10-20) Glucose 189 H (70-99) mg/dl Calcium 8.8 (8.5-10.1) mg/dl Total Bilirubin 0.3 (0.2-1) mg/dl AST 10 L (15-37) U/L ALT 23 (12-78) U/L Alkaline Phosphatase 57 (45-117) U/L Total Creatine Kinase (26-192) U/L CK-MB (CK-2) (0.5-3.6) ng/ml CK/CKMB % Calc (0-3.0) Troponin I < 0.015 (0-0.045) ng/ml NT-Pro-B Natriuret Pep (0-900) pg/ml Total Protein 6.7 (6.4-8.2) gm/dl Albumin 3.0 L (3.4-5.0) gm/dl Globulin 3.7 (2.5-4.0) gm/dl Albumin/Globulin Ratio 0.8 L (0.9-2) Lipase 97 (73-393) U/L SARS-CoV-2 Ag (Rapid) (Negative) 09/13/20 09/13/20 09/13/20 Range/Units 11:50 11:50 12:54 WBC (4.8-10.8) K/uL RBC (4.2-5.4) M/uL Hgb (12.0-16.0) g/dL Hct (37-47) % MCV (80-100) fL MCH (25-34) pg MCHC (32-36) g/dL RDW Std Deviation (36.4-46.3) fL RDW Coeff of Adin (11.5-14.5) % Plt Count (130-400) K/uL MPV (7.4-10.4) fL Immature Gran % (Auto) % Neut % (Auto) % Lymph % (Auto) % Rabun % (Auto) % Eos % (Auto) % Baso % (Auto) % Neut # (Auto) (1.4-6.5) K/uL Lymph # (Auto) (1.2-3.4) K/uL Rabun # (Auto) (0.11-0.59) K/uL Eos # (Auto) (0-0.5) K/uL Baso # (Auto) (0-0.2) K/uL Immature Gran # (Auto) (0.00-0.02) K/uL PT (9.0-12.0) Seconds INR (0.9-1.1) APTT (21.0-31.0) Seconds PTT Ratio D-Dimer 880 H* (0-500) ug/L FEU Sodium (136-145) mmol/L Potassium (3.5-5.1) mmol/L Chloride (98-107) mmol/L Carbon Dioxide (21-32) mmol/L Anion Gap (3-11) BUN (7-18) mg/dl Creatinine (0.6-1.2) mg/dl Est Cr Clr Drug Dosing ml/min Est GFR ( Amer) Est GFR (Non-Af Amer) BUN/Creatinine Ratio (10-20) Glucose (70-99) mg/dl Calcium (8.5-10.1) mg/dl Total Bilirubin (0.2-1) mg/dl AST (15-37) U/L ALT (12-78) U/L Alkaline Phosphatase (45-117) U/L Total Creatine Kinase 76 (26-192) U/L CK-MB (CK-2) 2.1 (0.5-3.6) ng/ml CK/CKMB % Calc 2.8 (0-3.0) Troponin I (0-0.045) ng/ml NT-Pro-B Natriuret Pep 206 (0-900) pg/ml Total Protein (6.4-8.2) gm/dl Albumin (3.4-5.0) gm/dl Globulin (2.5-4.0) gm/dl Albumin/Globulin Ratio (0.9-2) Lipase (73-393) U/L SARS-CoV-2 Ag (Rapid) Negative (Negative) Imaging Data CT scan - chest: Radiologist's impression: [facility], [phone] CT Scan Report Patient: Albert SMALL Date: 09/13/20MR#: [id number]: [address]Acct ID:[id number]: [facility]: 1965[facility] Zip[facility] [place], [place] [address]Tez: 55Location: EDSex: FRoom/Bed:Att Phy:Diagnosis: CHEST PAINPri Phy: Baldev Morelos MDService Date: 09/13/20Fam Phy:Interpreting Phy: Tremayne Arnold MDAdmit Phy: Ordering Phy: Fahad Ragland MD cc: ~ CT ANGIOGRAM OF THE CHEST CLINICAL HISTORY: Atypical chest pain. Left lower extremity edema. COMPARISON STUDY: Chest x-ray dated 09/13/2020. Abdominal CT dated 03/06/2020. TECHNIQUE: Following the IV administration of 120 cc of Optiray 320, CT angiogram of the chest was performed from the upper abdomen to the thoracic inlet utilizing the pulmonary embolus protocol. Images are reviewed in the axial, sagittal, and coronal planes. 3-D MIPS images are created and assessed. IV contrast was administered without complication. The patient was premedicated for a reported history of contrast allergy. A dose lowering technique was utilized adhering to the principles of ALARA. CT DOSE: 874.57 mGy.cm FINDINGS: Thyroid: Mildly atrophic. Thoracic aorta: The thoracic aorta is normal in caliber and demonstrates standard 3-vessel arch anatomy. No dissection is seen. Pulmonary vasculature: The pulmonary trunk is normal in caliber. There are no filling defects identified in main, lobar, or segmental pulmonary branches to suggest pulmonary embolus. Heart: The heart is normal in size and without pericardial effusion. Lungs and pleural spaces: The lungs and pleural spaces are clear noting bib asilar atelectasis. The trachea and central airways are patent. Mediastinum: There is no mediastinal lymphadenopathy. Lida: Clear. Axillae: There is no axillary lymphadenopathy. Upper abdomen: There is a tiny hiatal hernia. A 1.4 cm peripherally calcified splenic artery aneurysm is seen on image #33. Skeletal structures: No lytic or blastic bony lesions are seen. IMPRESSION: 1. There is no evidence of pulmonary embolus in the main, lobar, or segmental pulmonary arteries. 2. There is no airspace consolidation or pleural effusion. 3. There is a 1.4 cm peripherally calcified splenic artery aneurysm, unchanged from a previous abdominal CT scan. ACT 112: Negative or not required by law. Electronically signed by: Tremayne Arnold M.D. 09/13/2020 2:41 PM Dictated: 09/13/20 1436Transcribed: 09/13/20 1436 Venous US: Radiologist's impression: [facility], [phone] Ultrasound Report Patient: Albert SMALL Date: 09/13/20MR#: [id number]: [address] [facility] [address]Acct ID:[id number]: Date: 1965[facility] Zip: [place] [address]Mrk: 55Location: EDSex: FRoom/Bed:Att Phy:Diagnosis: CHEST PAINPri Phy: Baldev Morelos MDService Date: 09/13/20Fam Phy:Interpreting Phy: Reese Freed MDAdmit Phy: Ordering Phy: Fahad Ragland MD cc: ~ LEFT LOWER EXTREMITY VENOUS DOPPLER CLINICAL HISTORY: Left leg swelling. COMPARISON STUDY: No previous studies for comparison. TECHNIQUE: Sonography of the deep venous system of the left lower extremity was performed. Compression and augmentation were evaluated. FINDINGS: The left common femoral, superficial femoral and popliteal veins were compressible. Augmentation was normal. Flow was shown within the deep calf vessels. IMPRESSION: No evidence of deep venous thrombus within the left lower extremity. ACT 112: Negative or not required by law. Electronically signed by: Reese Freed M.D. 09/13/2020 2:14 PM Dictated: 09/13/20 1412Transcribed: 09/13/20 1412 [facility], [phone] XRay Report Patient: Albert SMALL Date: 09/13/20MR#: [id number]: [address] [facility] [address] [address]Acct ID:[id number]: Date: 1965[facility] Zip: [place] [address]Mmt: 55Location: EDSex: FRoom/Bed:Att Phy:Diagnosis: CHEST PAINPri Phy: Shin Royal M.D.Service Date: 09/13/20[facility] Phy:Interpreting Phy: Reese Freed MDAdmit Phy: Ordering Phy: Fahad Ragland MD cc: ~ XR chest 1V portable CLINICAL HISTORY: Atypical chest pain. COMPARISON STUDY: Chest radiograph March 06, 2020. FINDINGS: Lung volumes are normal. Lungs are clear. There is no pneumothorax or pleural effusion. Cardiac size is normal. Mediastinal contours are normal. There is no evidence for pulmonary edema. IMPRESSION: No acute cardiopulmonary findings. ACT 112: Negative or not required by law. Electronically signed by: Reese Freed M.D. 09/13/2020 12:29 PM Dictated: 09/13/20 1228Transcribed: 09/13/208 ECG Data Attestation: I personally reviewed and interpreted this ECG as follows: Indication: chest pain Rate (beats per minute): 79 Rhythm: normal sinus Findings: no ST depression and no ST elevation Comparison ECG Date: from (12/23/2016) Change: no significant change MDM Narrative Patient was seen and evaluated as above in room B9. Review was performed of nursing notes and vital signs. I did review pertinent previous visits and patient history. After obtaining a thorough history and physical examination the above work up was performed. This is a 55-year-old female who presents with 3-day history of chest pain that is relieved by nitro. Patient was given 2 doses of nitro here and is currently pain-free. The patient reports that the chest pain is made worse with exertion. Because of all these findings I did discuss the case with the hospitalist service. Patient does have a positive D-dimer and was sent for CAT scan of the chest however this does not show any evidence of a DVT or PE. Ultrasound does not show any evidence of a DVT. Patient was given Nitropaste here in the emergency department. She does not have an elevation in her troponin. I did discuss the case with the hospitalist service who did agree to meet patient as the patient has not been taking any of her medications and I feel is a poor candidate for outpatient follow-up. An order was placed for continuous cardiac monitoring. The monitor shows a rate of 70 with Normal Sinus rhythm. The patient was evaluated during the global COVID-19 pandemic, and that diagnosis was suspected/considered upon their initial presentation. Their evaluation, treatment and testing was consistent with current guidelines for patients who present with complaints or symptoms that may be related to COVID- 19. Impression & Plan Chest pain Discharge Plan Visit Data Chief Complaint: Chest Pain Stated Complaint: CHEST PAIN ED Provider: Fahad Ragland Discharge Problem: Chest pain Patient Disposition: Admitted As Inpatient Discharge Instructions Interventions: ED Discharge Assessment Last Done: 09/13/20 15:42 Discharge Problem: Chest pain Qualifiers: Chest pain type: unspecified Qualified Code(s): R07.9 - Chest pain, unspecified
[2020-09-13] MEDS ORDERED: LOSARTAN POTASSIUM 50 MG TAB PO ONE (17:00)
[2020-09-13] MEDS ORDERED: NITROGLYCERIN SL 0.4 MG/TAB TAB SL PRN (17:09)
[2020-09-13] MEDS ORDERED: LABETALOL HCL IV 5 MG/ML 20ML IV PRN (17:10)
[2020-09-13] MEDS: ONDANSETRON INJ 2 MG/ML 2 ML VIAL IV PRN (17:17)
[2020-09-13] MEDS: HEPARIN SODIUM/DEXTROSE 25,000 UNITS/500 ML BAG IV SCH (17:43)
[2020-09-13] MEDS: Heparin IV Standard *NO* Bolus IV SCH ×3 (17:45→18:59)
[2020-09-13] MEDS ORDERED: ALBUTEROL HFA 8 GM INHALER INH PRN (18:15)
[2020-09-13] MEDS: INSULIN ASPART 100 UNITS/ML 3 ML PEN SC SCH ×3 (18:58→23:06)
[2020-09-13] MEDS ORDERED: PHARMACY GLYCEMIC MGMT CONSULT PRN (20:28)
[2020-09-13] MEDS ORDERED: POTASSIUM CHLORIDE CRTAB 20 MEQ TABCR PO ONE (20:52)
[2020-09-13] MEDS ORDERED: INSULIN HUMAN REGULAR PER UNIT 10 UNITS in SYRINGE 9.9 ML IV ONE (21:00)
[2020-09-13] MEDS ORDERED: INSULIN GLARGINE SOLOSTAR 100 UNITS/ML 3 ML PEN SC SCH ×2 (21:00)
[2020-09-13] MEDS: traMADol HCL 50 MG TABLET PO PRN (21:17)
[2020-09-13] MEDS: METOPROLOL TARTRATE 50 MG TAB PO SCH (21:18)
[2020-09-13] MEDS ORDERED: HEPARIN SOD 5,000 UNIT/0.5 ML VIAL SQ SCH (22:00)
[2020-09-13] MEDS ORDERED: LORazepam 0.5 MG TAB PO STA (23:44)
[2020-09-14] MEDS: NITROGLYCERIN 2% OINTMENT 30GM TUBE EXT SCH ×2 (00:17→06:18)
[2020-09-14] MEDS ORDERED: INSULIN HUMAN REGULAR PER UNIT 5 UNITS in SYRINGE 4.95 ML IV ONE (00:30)
[2020-09-14 00:35] LABS: Partial Thromboplastin Ratio 1.7
[2020-09-14 00:37] LABS: Partial Thromboplastin Time 47.3 Seconds (21.0-31.0)
[2020-09-14] MEDS: INSULIN ASPART 100 UNITS/ML 3 ML PEN SC SCH ×5 (00:46→17:34)
[2020-09-14 04:14] LABS: Basophils # (auto) 0.01 K/uL (0-0.2); Basophils % (auto) 0.1 %; Hematocrit (blood only) 37.2 % (37-47); Hemoglobin 12.8 g/dL (12.0-16.0); Immature Granulocytes # (auto) 0.03 K/uL (0.00-0.02); Immature Granulocytes % (auto) 0.3 %; Lymphocytes # (auto) 1.14 K/uL (1.2-3.4); Lymphocytes % (auto) 9.8 %; Mean Corpuscular Hgb Conc 34.4 g/dL (32-36); Mean Corpuscular Volume 84.2 fL (80-100); Mean Platelet Volume 12.3 fL (7.4-10.4); Monocytes # (auto) 0.31 K/uL (0.11-0.59); Monocytes % (auto) 2.7 %; Neutrophils # (auto) 10.17 K/uL (1.4-6.5); Neutrophils % (auto) 87.1 %; Platelet Count 259 K/uL (130-400); RDW Coefficient of Variation 13.6 % (11.5-14.5); RDW Standard Deviation 41.2 fL (36.4-46.3); Red Blood Count 4.42 M/uL (4.2-5.4); White Blood Count 11.66 K/uL (4.8-10.8)
[2020-09-14] MEDS: ONDANSETRON INJ 2 MG/ML 2 ML VIAL IV PRN ×2 (04:30→08:17)
[2020-09-14] MEDS: traMADol HCL 50 MG TABLET PO PRN ×3 (04:30→16:07)
[2020-09-14 04:35] LABS: Partial Thromboplastin Ratio 2.1
[2020-09-14 04:40] LABS: Partial Thromboplastin Time 58.4 Seconds (21.0-31.0)
[2020-09-14 04:49] LABS: BUN Creatinine Ratio 17.2 (10-20); Blood Urea Nitrogen 16 mg/dl (7-18); Calcium 8.4 mg/dl (8.5-10.1); Carbon Dioxide 27 mmol/L (21-32); Chloride 109 mmol/L (98-107); Chol HDL Ratio 4; Cholesterol 244 mg/dl (0-200); Creatinine Clr Calc Pharmacy 91.6 ml/min; Est GFR (African American) 80.3; Est GFR (Non-African American) 69.3; Glucose 229 mg/dl (70-99); HDL Cholesterol 69 mg/dl; LDL Cholesterol Calculated 161 mg/dl; Magnesium 1.9 mg/dl (1.8-2.4); Potassium 4.1 mmol/L (3.5-5.1); Sodium 139 mmol/L (136-145); Triglycerides 68 mg/dl (0-150); Troponin I < 0.015 ng/ml (0-0.045); VLDL Cholesterol 14 mg/dl
[2020-09-14 05:59] LABS: Estimated Average Glucose 364 mg/dl; Hemoglobin A1C 14.3 % (4.5-5.6)
--- NOTE | 2020-09-14 08:08 | Hospitalist Progress Note ---
Date of Service September 14, 2020 Assessment & Plan (1) Chest pain: Chest Pain: R/O ACS Risk factors: H/O HTN, DM II, Obesity Likely due to uncontrolled HTN EKG shows: Poor R wave progression, normal sinus rhythm CTA: No evidence of PE, consolidation, pleural effusion Troponin x3 - Negative repeat EKG - no repolarization/ ischemic changes Fasting lipid panel in AM- TC 244, TG 68, LDL 161 Stop NTG Start Aspirin Obtained ECHO - mild concentric LVH. LV wall motion is normal. LVEF 65 to 60%. RV is normal in size and function. No significant valvular heart disease. Oxygen PRN Cardiology consult - plan for stress test today (09/14/20) Currently on IV heparin, given chest pain Hypertensive urgency Noncompliant with medications due to insurance Previously on losartan, clonidine, atenolol Currently not taking medications since 4 months We will start on losartan, metoprolol Also on nitroglycerin Labetalol as needed Elevated D-dimer CTA no signs of PE Venous Dopplers negative for DVT Hypokalemia Replete electrolytes as needed Check magnesium levels Splenic artery aneurysm Incidental finding on CT scan Unchanged from prior abdominal CT Follow-up as outpatient DM II Diabetic neuropathy Last HbA1C: 9.9 on 12/15/15 Current Hb A1c 14.3% Noncompliant with medications secondary to insurance issues Previously on gabapentin, glipizide, NovoLog, Lantus Currently taking only NovoLog Poorly controlled Glycemic pharmacy consulted, special education paraeducator consulted Pt will need close outpt follow up ISS, basal Insulin, Accu checks, Diabetic diet 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 Was started on IV heparin. Several EKGs obtained overnight. Currently patient is lying in bed, in no acute distress, denies any chest pain. No shortness of breath, no palpitations. Patient reports headache due to nitroglycerin. No fevers or chills. Surgery was consulted, plan for stress test later today. Hemoglobin A1c increased, 14.3%. Discussed with the patient need for better control of diabetes. special education paraeducator also consulted. Reportedly patient did not have health insurance, and therefore was without medications for some time. She says that it is all taken care of now and she is able to see physician and have medications. Also discussed other options, and even cheaper medication options. Review of Systems Review of Systems: All systems reviewed & are unremarkable except as noted in HPI & below Constitutional: no fever and no chills Respiratory: no cough and no dyspnea Cardiovascular: no chest pain, no palpitations and no edema Gastrointestinal: no abdominal pain, no nausea and no vomiting Neurologic: + headache(s) Physical Exam Physical Exam: General Appearance: Obese female laying in bed, no apparent distress Head: normocephalic, Atraumatic Eyes: normal inspection, EOMI Neck: supple, Trachea midline Respiratory/Chest: Normal breath sounds, CTA, No accessory muscle use Cardiovascular: RRR, S1, S2, No murmur Abdomen/GI:Soft, Non tender, Bowel sounds present Extremities/MSK:normal inspection, Trace B/L LE edema, moves extremities spontaneously Neurologic/Psych:AAOX3, speech fluent, no facial asymmetry, moves extremities spontaneously Skin: normal color, warm Results & Data Results & Data ([facility]) Vital Signs (Past 12 Hours) Vital Signs Temp Pulse Pulse Resp BP Pulse Ox 09/14/20 07:41 36.4 C L 67 19 147/82 H 97 09/14/20 04:06 36.4 C L 79 18 148/82 H 95 09/13/20 23:40 69 09/13/20 23:17 36.5 C 76 18 146/84 H 95 09/13/20 21:33 178/91 H 96 Laboratory Results 09/14/20 09/14/20 09/14/20 Range/Units 07:37 04:07 03:54 WBC (4.8-10.8) K/uL RBC (4.2-5.4) M/uL Hgb (12.0-16.0) g/dL Hct (37-47) % MCV (80-100) fL MCH (25-34) pg MCHC (32-36) g/dL RDW Std Deviation (36.4-46.3) fL RDW Coeff of Adin (11.5-14.5) % Plt Count (130-400) K/uL MPV (7.4-10.4) fL Immature Gran % (Auto) % Neut % (Auto) % Lymph % (Auto) % Camp % (Auto) % Eos % (Auto) % Baso % (Auto) % Neut # (Auto) (1.4-6.5) K/uL Lymph # (Auto) (1.2-3.4) K/uL Camp # (Auto) (0.11-0.59) K/uL Eos # (Auto) (0-0.5) K/uL Baso # (Auto) (0-0.2) K/uL Immature Gran # (Auto) (0.00-0.02) K/uL PT (9.0-12.0) Seconds INR (0.9-1.1) APTT 58.4 H* (21.0-31.0) Seconds PTT Ratio 2.1 D-Dimer (0-500) ug/L FEU Sodium (136-145) mmol/L Potassium (3.5-5.1) mmol/L Chloride (98-107) mmol/L Carbon Dioxide (21-32) mmol/L Anion Gap (3-11) BUN (7-18) mg/dl Creatinine (0.6-1.2) mg/dl Est Cr Clr Drug Dosing ml/min Est GFR ( Amer) Est GFR (Non-Af Amer) BUN/Creatinine Ratio (10-20) Glucose (70-99) mg/dl POC Glucose 151 H 235 H (70-99) mg/dl Estimat Average Glucose mg/dl Hemoglobin A1c (4.5-5.6) % Calcium (8.5-10.1) mg/dl Magnesium (1.8-2.4) mg/dl Total Bilirubin (0.2-1) mg/dl AST (15-37) U/L ALT (12-78) U/L Alkaline Phosphatase (45-117) U/L Total Creatine Kinase (26-192) U/L CK-MB (CK-2) (0.5-3.6) ng/ml CK/CKMB % Calc (0-3.0) Troponin I (0-0.045) ng/ml NT-Pro-B Natriuret Pep (0-900) pg/ml Total Protein (6.4-8.2) gm/dl Albumin (3.4-5.0) gm/dl Globulin (2.5-4.0) gm/dl Albumin/Globulin Ratio (0.9-2) Triglycerides (0-150) mg/dl Cholesterol (0-200) mg/dl LDL Cholesterol, Calc mg/dl VLDL Cholesterol, Calc mg/dl HDL Cholesterol mg/dl Cholesterol/HDL Ratio Lipase (73-393) U/L TSH (0.300-4.500) uIu/ml SARS-CoV-2 Ag (Rapid) (Negative) 09/14/20 09/14/20 09/14/20 Range/Units 03:54 03:54 03:54 WBC 11.66 H (4.8-10.8) K/uL RBC 4.42 (4.2-5.4) M/uL Hgb 12.8 (12.0-16.0) g/dL Hct 37.2 (37-47) % MCV 84.2 (80-100) fL MCH 29.0 (25-34) pg MCHC 34.4 (32-36) g/dL RDW Std Deviation 41.2 (36.4-46.3) fL RDW Coeff of Adin 13.6 (11.5-14.5) % Plt Count 259 (130-400) K/uL MPV 12.3 H (7.4-10.4) fL Immature Gran % (Auto) 0.3 % Neut % (Auto) 87.1 % Lymph % (Auto) 9.8 % Camp % (Auto) 2.7 % Eos % (Auto) 0.0 % Baso % (Auto) 0.1 % Neut # (Auto) 10.17 H (1.4-6.5) K/uL Lymph # (Auto) 1.14 L (1.2-3.4) K/uL Camp # (Auto) 0.31 (0.11-0.59) K/uL Eos # (Auto) 0.00 (0-0.5) K/uL Baso # (Auto) 0.01 (0-0.2) K/uL Immature Gran # (Auto) 0.03 H (0.00-0.02) K/uL PT (9.0-12.0) Seconds INR (0.9-1.1) APTT (21.0-31.0) Seconds PTT Ratio D-Dimer (0-500) ug/L FEU Sodium 139 (136-145) mmol/L Potassium 4.1 D (3.5-5.1) mmol/L Chloride 109 H (98-107) mmol/L Carbon Dioxide 27 (21-32) mmol/L Anion Gap 3.0 (3-11) BUN 16 (7-18) mg/dl Creatinine 0.94 (0.6-1.2) mg/dl Est Cr Clr Drug Dosing 91.6 ml/min Est GFR ( Amer) 80.3 Est GFR (Non-Af Amer) 69.3 BUN/Creatinine Ratio 17.2 (10-20) Glucose 229 H (70-99) mg/dl POC Glucose (70-99) mg/dl Estimat Average Glucose 364 mg/dl Hemoglobin A1c 14.3 H (4.5-5.6) % Calcium 8.4 L (8.5-10.1) mg/dl Magnesium 1.9 (1.8-2.4) mg/dl Total Bilirubin (0.2-1) mg/dl AST (15-37) U/L ALT (12-78) U/L Alkaline Phosphatase (45-117) U/L Total Creatine Kinase (26-192) U/L CK-MB (CK-2) (0.5-3.6) ng/ml CK/CKMB % Calc (0-3.0) Troponin I < 0.015 (0-0.045) ng/ml NT-Pro-B Natriuret Pep (0-900) pg/ml Total Protein (6.4-8.2) gm/dl Albumin (3.4-5.0) gm/dl Globulin (2.5-4.0) gm/dl Albumin/Globulin Ratio (0.9-2) Triglycerides 68 (0-150) mg/dl Cholesterol 244 H (0-200) mg/dl LDL Cholesterol, Calc 161 mg/dl VLDL Cholesterol, Calc 14 mg/dl HDL Cholesterol 69 mg/dl Cholesterol/HDL Ratio 4 Lipase (73-393) U/L TSH 0.670 (0.300-4.500) uIu/ml SARS-CoV-2 Ag (Rapid) (Negative) 09/14/20 09/14/20 09/14/20 Range/Units 02:31 00:20 00:18 WBC (4.8-10.8) K/uL RBC (4.2-5.4) M/uL Hgb (12.0-16.0) g/dL Hct (37-47) % MCV (80-100) fL MCH (25-34) pg MCHC (32-36) g/dL RDW Std Deviation (36.4-46.3) fL RDW Coeff of Adin (11.5-14.5) % Plt Count (130-400) K/uL MPV (7.4-10.4) fL Immature Gran % (Auto) % Neut % (Auto) % Lymph % (Auto) % Camp % (Auto) % Eos % (Auto) % Baso % (Auto) % Neut # (Auto) (1.4-6.5) K/uL Lymph # (Auto) (1.2-3.4) K/uL Camp # (Auto) (0.11-0.59) K/uL Eos # (Auto) (0-0.5) K/uL Baso # (Auto) (0-0.2) K/uL Immature Gran # (Auto) (0.00-0.02) K/uL PT (9.0-12.0) Seconds INR (0.9-1.1) APTT (21.0-31.0) Seconds PTT Ratio D-Dimer (0-500) ug/L FEU Sodium (136-145) mmol/L Potassium (3.5-5.1) mmol/L Chloride (98-107) mmol/L Carbon Dioxide (21-32) mmol/L Anion Gap (3-11) BUN (7-18) mg/dl Creatinine (0.6-1.2) mg/dl Est Cr Clr Drug Dosing ml/min Est GFR ( Amer) Est GFR (Non-Af Amer) BUN/Creatinine Ratio (10-20) Glucose (70-99) mg/dl POC Glucose 264 H 319 H* 358 H* (70-99) mg/dl Estimat Average Glucose mg/dl Hemoglobin A1c (4.5-5.6) % Calcium (8.5-10.1) mg/dl Magnesium (1.8-2.4) mg/dl Total Bilirubin (0.2-1) mg/dl AST (15-37) U/L ALT (12-78) U/L Alkaline Phosphatase (45-117) U/L Total Creatine Kinase (26-192) U/L CK-MB (CK-2) (0.5-3.6) ng/ml CK/CKMB % Calc (0-3.0) Troponin I (0-0.045) ng/ml NT-Pro-B Natriuret Pep (0-900) pg/ml Total Protein (6.4-8.2) gm/dl Albumin (3.4-5.0) gm/dl Globulin (2.5-4.0) gm/dl Albumin/Globulin Ratio (0.9-2) Triglycerides (0-150) mg/dl Cholesterol (0-200) mg/dl LDL Cholesterol, Calc mg/dl VLDL Cholesterol, Calc mg/dl HDL Cholesterol mg/dl Cholesterol/HDL Ratio Lipase (73-393) U/L TSH (0.300-4.500) uIu/ml SARS-CoV-2 Ag (Rapid) (Negative) 09/13/20 09/13/20 09/13/20 Range/Units 23:38 22:26 20:19 WBC (4.8-10.8) K/uL RBC (4.2-5.4) M/uL Hgb (12.0-16.0) g/dL Hct (37-47) % MCV (80-100) fL MCH (25-34) pg MCHC (32-36) g/dL RDW Std Deviation (36.4-46.3) fL RDW Coeff of Adin (11.5-14.5) % Plt Count (130-400) K/uL MPV (7.4-10.4) fL Immature Gran % (Auto) % Neut % (Auto) % Lymph % (Auto) % Camp % (Auto) % Eos % (Auto) % Baso % (Auto) % Neut # (Auto) (1.4-6.5) K/uL Lymph # (Auto) (1.2-3.4) K/uL Camp # (Auto) (0.11-0.59) K/uL Eos # (Auto) (0-0.5) K/uL Baso # (Auto) (0-0.2) K/uL Immature Gran # (Auto) (0.00-0.02) K/uL PT (9.0-12.0) Seconds INR (0.9-1.1) APTT 47.3 H* (21.0-31.0) Seconds PTT Ratio 1.7 D-Dimer (0-500) ug/L FEU Sodium (136-145) mmol/L Potassium (3.5-5.1) mmol/L Chloride (98-107) mmol/L Carbon Dioxide (21-32) mmol/L Anion Gap (3-11) BUN (7-18) mg/dl Creatinine (0.6-1.2) mg/dl Est Cr Clr Drug Dosing ml/min Est GFR ( Amer) Est GFR (Non-Af Amer) BUN/Creatinine Ratio (10-20) Glucose (70-99) mg/dl POC Glucose 334 H* (70-99) mg/dl Estimat Average Glucose mg/dl Hemoglobin A1c (4.5-5.6) % Calcium (8.5-10.1) mg/dl Magnesium (1.8-2.4) mg/dl Total Bilirubin (0.2-1) mg/dl AST (15-37) U/L ALT (12-78) U/L Alkaline Phosphatase (45-117) U/L Total Creatine Kinase (26-192) U/L CK-MB (CK-2) (0.5-3.6) ng/ml CK/CKMB % Calc (0-3.0) Troponin I < 0.015 (0-0.045) ng/ml NT-Pro-B Natriuret Pep (0-900) pg/ml Total Protein (6.4-8.2) gm/dl Albumin (3.4-5.0) gm/dl Globulin (2.5-4.0) gm/dl Albumin/Globulin Ratio (0.9-2) Triglycerides (0-150) mg/dl Cholesterol (0-200) mg/dl LDL Cholesterol, Calc mg/dl VLDL Cholesterol, Calc mg/dl HDL Cholesterol mg/dl Cholesterol/HDL Ratio Lipase (73-393) U/L TSH (0.300-4.500) uIu/ml SARS-CoV-2 Ag (Rapid) (Negative) 09/13/20 09/13/20 09/13/20 Range/Units 20:08 20:05 17:52 WBC (4.8-10.8) K/uL RBC (4.2-5.4) M/uL Hgb (12.0-16.0) g/dL Hct (37-47) % MCV (80-100) fL MCH (25-34) pg MCHC (32-36) g/dL RDW Std Deviation (36.4-46.3) fL RDW Coeff of Adin (11.5-14.5) % Plt Count (130-400) K/uL MPV (7.4-10.4) fL Immature Gran % (Auto) % Neut % (Auto) % Lymph % (Auto) % Camp % (Auto) % Eos % (Auto) % Baso % (Auto) % Neut # (Auto) (1.4-6.5) K/uL Lymph # (Auto) (1.2-3.4) K/uL Camp # (Auto) (0.11-0.59) K/uL Eos # (Auto) (0-0.5) K/uL Baso # (Auto) (0-0.2) K/uL Immature Gran # (Auto) (0.00-0.02) K/uL PT (9.0-12.0) Seconds INR (0.9-1.1) APTT (21.0-31.0) Seconds PTT Ratio D-Dimer (0-500) ug/L FEU Sodium (136-145) mmol/L Potassium (3.5-5.1) mmol/L Chloride (98-107) mmol/L Carbon Dioxide (21-32) mmol/L Anion Gap (3-11) BUN (7-18) mg/dl Creatinine (0.6-1.2) mg/dl Est Cr Clr Drug Dosing ml/min Est GFR ( Amer) Est GFR (Non-Af Amer) BUN/Creatinine Ratio (10-20) Glucose (70-99) mg/dl POC Glucose 407 H* 383 H* 283 H (70-99) mg/dl Estimat Average Glucose mg/dl Hemoglobin A1c (4.5-5.6) % Calcium (8.5-10.1) mg/dl Magnesium (1.8-2.4) mg/dl Total Bilirubin (0.2-1) mg/dl AST (15-37) U/L ALT (12-78) U/L Alkaline Phosphatase (45-117) U/L Total Creatine Kinase (26-192) U/L CK-MB (CK-2) (0.5-3.6) ng/ml CK/CKMB % Calc (0-3.0) Troponin I (0-0.045) ng/ml NT-Pro-B Natriuret Pep (0-900) pg/ml Total Protein (6.4-8.2) gm/dl Albumin (3.4-5.0) gm/dl Globulin (2.5-4.0) gm/dl Albumin/Globulin Ratio (0.9-2) Triglycerides (0-150) mg/dl Cholesterol (0-200) mg/dl LDL Cholesterol, Calc mg/dl VLDL Cholesterol, Calc mg/dl HDL Cholesterol mg/dl Cholesterol/HDL Ratio Lipase (73-393) U/L TSH (0.300-4.500) uIu/ml SARS-CoV-2 Ag (Rapid) (Negative) 09/13/20 09/13/20 09/13/20 Range/Units 12:54 11:50 11:50 WBC (4.8-10.8) K/uL RBC (4.2-5.4) M/uL Hgb (12.0-16.0) g/dL Hct (37-47) % MCV (80-100) fL MCH (25-34) pg MCHC (32-36) g/dL RDW Std Deviation (36.4-46.3) fL RDW Coeff of Adin (11.5-14.5) % Plt Count (130-400) K/uL MPV (7.4-10.4) fL Immature Gran % (Auto) % Neut % (Auto) % Lymph % (Auto) % Camp % (Auto) % Eos % (Auto) % Baso % (Auto) % Neut # (Auto) (1.4-6.5) K/uL Lymph # (Auto) (1.2-3.4) K/uL Camp # (Auto) (0.11-0.59) K/uL Eos # (Auto) (0-0.5) K/uL Baso # (Auto) (0-0.2) K/uL Immature Gran # (Auto) (0.00-0.02) K/uL PT (9.0-12.0) Seconds INR (0.9-1.1) APTT (21.0-31.0) Seconds PTT Ratio D-Dimer 880 H* (0-500) ug/L FEU Sodium (136-145) mmol/L Potassium (3.5-5.1) mmol/L Chloride (98-107) mmol/L Carbon Dioxide (21-32) mmol/L Anion Gap (3-11) BUN (7-18) mg/dl Creatinine (0.6-1.2) mg/dl Est Cr Clr Drug Dosing ml/min Est GFR ( Amer) Est GFR (Non-Af Amer) BUN/Creatinine Ratio (10-20) Glucose (70-99) mg/dl POC Glucose (70-99) mg/dl Estimat Average Glucose mg/dl Hemoglobin A1c (4.5-5.6) % Calcium (8.5-10.1) mg/dl Magnesium (1.8-2.4) mg/dl Total Bilirubin (0.2-1) mg/dl AST (15-37) U/L ALT (12-78) U/L Alkaline Phosphatase (45-117) U/L Total Creatine Kinase 76 (26-192) U/L CK-MB (CK-2) 2.1 (0.5-3.6) ng/ml CK/CKMB % Calc 2.8 (0-3.0) Troponin I (0-0.045) ng/ml NT-Pro-B Natriuret Pep 206 (0-900) pg/ml Total Protein (6.4-8.2) gm/dl Albumin (3.4-5.0) gm/dl Globulin (2.5-4.0) gm/dl Albumin/Globulin Ratio (0.9-2) Triglycerides (0-150) mg/dl Cholesterol (0-200) mg/dl LDL Cholesterol, Calc mg/dl VLDL Cholesterol, Calc mg/dl HDL Cholesterol mg/dl Cholesterol/HDL Ratio Lipase (73-393) U/L TSH (0.300-4.500) uIu/ml SARS-CoV-2 Ag (Rapid) Negative (Negative) 09/13/20 09/13/20 09/13/20 Range/Units 11:50 11:50 11:50 WBC 7.42 (4.8-10.8) K/uL RBC 4.53 (4.2-5.4) M/uL Hgb 12.8 (12.0-16.0) g/dL Hct 37.3 (37-47) % MCV 82.3 (80-100) fL MCH 28.3 (25-34) pg MCHC 34.3 (32-36) g/dL RDW Std Deviation 40.8 (36.4-46.3) fL RDW Coeff of Adin 13.6 (11.5-14.5) % Plt Count 246 (130-400) K/uL MPV 11.8 H (7.4-10.4) fL Immature Gran % (Auto) 0.3 % Neut % (Auto) 60.6 % Lymph % (Auto) 25.2 % Camp % (Auto) 7.4 % Eos % (Auto) 5.8 % Baso % (Auto) 0.7 % Neut # (Auto) 4.50 (1.4-6.5) K/uL Lymph # (Auto) 1.87 (1.2-3.4) K/uL Camp # (Auto) 0.55 (0.11-0.59) K/uL Eos # (Auto) 0.43 (0-0.5) K/uL Baso # (Auto) 0.05 (0-0.2) K/uL Immature Gran # (Auto) 0.02 (0.00-0.02) K/uL PT 10.9 (9.0-12.0) Seconds INR 1.0 (0.9-1.1) APTT 25.6 (21.0-31.0) Seconds PTT Ratio 0.9 D-Dimer (0-500) ug/L FEU Sodium 140 (136-145) mmol/L Potassium 3.4 L (3.5-5.1) mmol/L Chloride 108 H (98-107) mmol/L Carbon Dioxide 26 (21-32) mmol/L Anion Gap 7.0 (3-11) BUN 11 (7-18) mg/dl Creatinine 0.78 (0.6-1.2) mg/dl Est Cr Clr Drug Dosing 110.4 ml/min Est GFR ( Amer) 100.6 Est GFR (Non-Af Amer) 86.8 BUN/Creatinine Ratio 13.8 (10-20) Glucose 189 H (70-99) mg/dl POC Glucose (70-99) mg/dl Estimat Average Glucose mg/dl Hemoglobin A1c (4.5-5.6) % Calcium 8.8 (8.5-10.1) mg/dl Magnesium (1.8-2.4) mg/dl Total Bilirubin 0.3 (0.2-1) mg/dl AST 10 L (15-37) U/L ALT 23 (12-78) U/L Alkaline Phosphatase 57 (45-117) U/L Total Creatine Kinase (26-192) U/L CK-MB (CK-2) (0.5-3.6) ng/ml CK/CKMB % Calc (0-3.0) Troponin I < 0.015 (0-0.045) ng/ml NT-Pro-B Natriuret Pep (0-900) pg/ml Total Protein 6.7 (6.4-8.2) gm/dl Albumin 3.0 L (3.4-5.0) gm/dl Globulin 3.7 (2.5-4.0) gm/dl Albumin/Globulin Ratio 0.8 L (0.9-2) Triglycerides (0-150) mg/dl Cholesterol (0-200) mg/dl LDL Cholesterol, Calc mg/dl VLDL Cholesterol, Calc mg/dl HDL Cholesterol mg/dl Cholesterol/HDL Ratio Lipase 97 (73-393) U/L TSH (0.300-4.500) uIu/ml SARS-CoV-2 Ag (Rapid) (Negative) Medications Administered Current Inpatient Medications Acetaminophen (Acetaminophen 325 Mg Tab) 650 mg PO Q4H PRN PRN Reason: Pain or Fever Stop: 10/13/20 16:37 Albuterol (Albuterol Hfa 8 Gm Inhaler) 2 puffs INH Q6H PRN PRN Reason: Shortness Of Breath Stop: 10/13/20 18:14 Aspirin (Aspirin 81 Mg Ectab) 81 mg PO QAM ANTWAN Stop: 10/14/20 08:59 Dextrose (Dextrose 50% 50 Ml Syringe) 25 - 50 ml IV UD PRN; Protocol PRN Reason: Hypoglycemia Protocol Stop: 10/13/20 16:37 Glucagon (Glucagon For Inj 1 Mg Vial) 1 mg SQ UD PRN; Protocol PRN Reason: Hypoglycemia Protocol Stop: 10/13/20 16:37 Glucose (Glucose 10 Tabs/Tube) 4 - 8 tabs PO UD PRN; Protocol PRN Reason: Hypoglycemia Protocol Stop: 10/13/20 16:37 Glucose (Glucose 40% Gel 15 Gm Tube) 15 - 30 gm PO UD PRN; Protocol PRN Reason: Hypoglycemia Protocol Stop: 10/13/20 16:37 Heparin Sodium/Dextrose (Heparin Sodium/Dextrose) 25,000 units in 500 mls @ 30 mls/hr IV .[id number] [facility]; Protocol Stop: 10/13/20 17:29 Last Titration: 09/14/20 07:01 Dose: 1,500 units/hr, 30 mls/hr Documented by: Insulin Aspart (Insulin Aspart 100 Units/Ml 3 Ml Pen) 0 units SC ACHS [facility] Stop: 10/13/20 16:37 Last Admin: 09/13/20 23:06 Dose: 8 units Documented by: Insulin Glargine (Insulin Glargine Solostar 100 Units/Ml 3 Ml Pen) 28 units SC BID [facility] Stop: 10/13/20 20:59 Last Admin: 09/13/20 21:16 Dose: 28 units Documented by: Labetalol HCl (Labetalol Hcl Iv 5 Mg/Ml 20ml) 10 mg IV Q6H PRN PRN Reason: Hypertension Stop: 10/13/20 17:09 Losartan Potassium (Losartan Potassium 50 Mg Tab) 50 mg PO QAM [facility] Stop: 10/14/20 08:59 Last Admin: 09/14/20 07:35 Dose: 50 mg Documented by: Metoprolol Tartrate (Metoprolol Tartrate 50 Mg Tab) 50 mg PO BID [facility] Stop: 10/13/20 20:59 Last Admin: 09/13/20 21:18 Dose: 50 mg Documented by: Miscellaneous (Carbohydrates For Hypoglycemia ) 15 - 30 gm PO UD PRN PRN Reason: Hypoglycemia Protocol Stop: 10/13/20 16:37 Miscellaneous Information (Pharmacy Glycemic Mgmt Consult) 1 ea N/A UD PRN PRN Reason: Consult Stop: 12/18/20 20:27 Nitroglycerin (Nitroglycerin 2% Ointment 30gm Tube) 1 inch EXT Q6H [facility]TW[facility] Stop: 10/13/20 12:29 Last Admin: 09/14/20 06:18 Dose: 1 inch Documented by: Nitroglycerin (Nitroglycerin Sl 0.4 Mg/Tab Tab) 0.4 mg SL PRN PRN PRN Reason: chest pain Stop: 10/13/20 17:08 Last Admin: 09/13/20 17:16 Dose: 0.4 mg Documented by: Ondansetron HCl (Ondansetron Inj 2 Mg/Ml 2 Ml Vial) 4 mg IV Q6H PRN PRN Reason: Nausea Stop: 10/13/20 16:37 Last Admin: 09/14/20 04:30 Dose: 4 mg Documented by: Pantoprazole Sodium (Pantoprazole 40 Mg Tab) 40 mg PO QAM [facility] Stop: 10/14/20 08:59 Tramadol HCl (Tramadol Hcl 50 Mg Tablet) 50 mg PO Q4H PRN PRN Reason: Pain Stop: 10/13/20 20:17 Last Admin: 09/14/20 04:30 Dose: 50 mg Documented by: (1) Chest pain Chest pain type: unspecified Qualified Code(s): R07.9 - Chest pain, unspecified
[2020-09-14] MEDS: METOPROLOL TARTRATE 50 MG TAB PO SCH (08:16)
[2020-09-14] MEDS ORDERED: ASPIRIN 81 MG ECTAB PO SCH (09:00)
[2020-09-14] MEDS ORDERED: LOSARTAN POTASSIUM 50 MG TAB PO SCH (09:00)
[2020-09-14] MEDS ORDERED: PANTOprazole 40 MG TAB PO SCH (09:00)
[2020-09-14] MEDS ORDERED: ATORVASTATIN 40 MG TAB PO SCH (10:45)
--- NOTE | 2020-09-14 11:35 | Cardiology Consultation ---
Date of Consultation September 14, 2020 Assessment & Plan (1) Chest pain: The patient describes waxing waning "squeezing "sensation in her chest. Serial troponin levels have been undetectable x3, EKG negative x4. The low blood pressure had been elevated on presentation yesterday, not certain that it was elevated to the degree that it would cause her to have chest pain symptoms. The highest blood pressure reading I see is 172/100. This had been improved to 147/82. She is back on her prior to hospital treatment with losartan. Metoprolol has already been added. Although she has significant cardiac risk factors, given negative enzymes negative EKG, and the somewhat atypical nature of her having longstanding rest pain without cardiac enzyme or EKG changes think it would be premature for her to proceed directly to cardiac catheterization. Recommended that we wean her nitroglycerin paste, discontinue unfractionated heparin, and perhaps proceed with stress echocardiogram. She has already had a resting echocardiogram today with normal wall motion. I do not think she will build exercise sufficiently on a treadmill. She had an exercise stress echocardiogram as an outpatient in 2010, and her exercise capacity was below average at that time, the patient describes difficulties with orthopedic limitations in her lower legs, and has a history of radiculopathy symptoms. Therefore plan on a dobutamine stress echo. (2) HTN (hypertension): Continue losartan, metoprolol. (3) Diabetes: Treatment per primary team. (4) Dyslipidemia: Start atorvastatin 40 mg daily. If necessary from a cost concern, we can consider transitioning her back to her previous simvastatin. History of Present Illness Attending Physician: Víctor Carpio MD History of Present Illness Maddi Valles is a 55-year-old female seen in cardiology consultation per the request of Dr. Nicole and Dr Carpio for the evaluation of chest discomfort. The patient has a longstanding history of being overweight, type 2 diabetes mellitus, and dyslipidemia. She has multiple allergies including a reported allergy to iodinated contrast media. She apparently has not been on her medications for approximately the last 4 months due to concerns of cost and insurance issues, but she states that this is resolved now. Hemoglobin A1c performed overnight was 14%. Her LDL cholesterol was 161 mg/dL. The patient presented via the emergency department yesterday complaining of waxing and waning "squeezing "in her chest onset 4 days ago, 3 days prior to presentation. She notes the discomfort has waxed and waned over several days, and is not been associated with aerobic exertion. She has had multiple episodes of acute discomfort opting EKG tracings performed yesterday at 11:44 AM, 1645, 2155. All of these revealed sinus rhythm not significant repolarization changes. Additional EKG performed this morning was once again without convincing changes suggestive of ischemia. Serial troponin I levels have been undetectable thus far x3. At the time of my assessment at the bedside PCU, the patient described ongoing chest discomfort despite nitroglycerin unfractioned heparin, not seem to distress, but very comfortable. She believes she had a prior cardiac catheterization in [place] approximately that she had coronary atherosclerosis best managed medically. The report of this [facility] chart or her Epic record. Family History: She states her mother is at the age of 85 with history of lung cancer, no known heart problems Father at the age of 75, with history of coronary heart disease, strokes, details unknown to patient Patient states that she does not keep in touch with her siblings, but has no knowledge of any of her siblings having a history of heart problems. Allergies Allergy/AdvReac Type Severity Reaction Status Date / Time clindamycin Allergy Intermediate swelling Verified 09/13/20 14:12 Penicillins Allergy Intermediate swelling Verified 09/13/20 14:12 chlorhexidine Allergy Mild RASH Verified 09/13/20 14:12 adhesive Allergy Unknown RED SKIN Verified 09/13/20 14:12 Bactrim Allergy Unknown SWELLING Verified 06/03/17 05:03 Iodinated Contrast Media Allergy Unknown "CONTRAST Verified 09/13/20 14:12 DYE ALLERGY" sulfamethoxazole Allergy Unknown SWELLING Verified 09/13/20 14:12 trimethoprim Allergy Unknown SWELLING Verified 09/13/20 14:12 acetaminophen AdvReac Intermediate upset Unverified 09/13/20 14:12 stomach citric acid AdvReac Intermediate VOMITING Verified 09/13/20 14:12 morphine AdvReac Intermediate vomiting Unverified 09/13/20 14:12 and dizziness sodium bicarbonate AdvReac Intermediate VOMITING Verified 09/13/20 14:12 propoxyphene AdvReac Mild CRAMPING Verified 09/13/20 14:12 AND VOMITING aspirin AdvReac Unknown NAUSEATED Verified 09/13/20 14:12 codeine AdvReac Unknown DIZZINESS Verified 09/13/20 14:12 pseudoephedrine AdvReac Unknown DIZZINESS Verified 09/13/20 14:12 triprolidine AdvReac Unknown DIZZINESS Verified 09/13/20 14:12 Home Medications Medication Instructions Recorded Confirmed Type albuterol sulfate 90 mcg/actuation 2 puffs INHALATION Q6H PRN #1 gm 06/04/19 09/13/20 History aerosol inhaler blood-glucose meter #1 ea 06/04/19 06/04/19 History lancets 30 gauge #25 ea 06/04/19 06/04/19 History insulin aspart U-100 100 unit/mL 6 units SUBCUT TIDM #5 ml 09/04/19 09/13/20 History (3 mL) subcutaneous pen omeprazole 20 mg capsule,delayed 20 mg PO QAM cap 09/04/19 09/13/20 History release Patient History Medical History Asthma Colitis Diabetes History of kidney disease HTN (hypertension) Hyperglycemia Kidney malignancy Low back pain with sciatica Surgical History H/O: hysterectomy History of appendectomy History of cholecystectomy Hx of tonsillectomy Previous section S/P hernia repair Family History Father Hypertension Coronary heart disease Stroke Mother Hypertension Diabetes CHF (congestive heart failure) Social History Smoking Status: Heavy tobacco smoker Tobacco Type: Cigarettes Second Hand Exposure: No; Do You Dip or Chew Tobacco: No; Tobacco Cessation Education Requested by Patient: Yes Hx Alcohol Use: No Hx Substance Use: Yes Substance Use Type Other:: LEGAL MARIJUANA CARD Communication Ability: Effective Beliefs That Will Affect Care: None Current Living Situation: Spouse Feels Safe at Home: Yes Safety Concerns: Feels Safe At This Time Assistive Devices: None Review of Systems Review of Systems: All systems reviewed & are unremarkable except as noted in HPI & below Physical Exam Physical Exam: Temp Pulse Resp BP Pulse Ox 36.4 C L 67 19 147/82 H 97 09/14/20 07:41 09/14/20 07:41 09/14/20 07:41 09/14/20 07:41 09/14/20 07:41 Constitutional: WD/WN, vitals as above Respiratory: normal respiratory effort, lungs clear to auscultation Cardiovascular: RRR, no murmur, no edema Gastrointestinal (Abdomen): normal bowel sounds, soft, nontender, no hepatosplenomegaly Neurologic: PERRL, EOMI, accommodation nl, no face palsy, no dysarthria Results & Data ([facility]) Vital Signs (Past 12 Hours) Vital Signs Temp Pulse Pulse Resp BP Pulse Ox 09/14/20 07:41 36.4 C L 67 19 147/82 H 97 09/14/20 04:06 36.4 C L 79 18 148/82 H 95 09/13/20 23:40 69 Laboratory Results Cardiac Enzymes 09/13/20 09/13/20 09/13/20 Range/Units 11:50 11:50 20:19 AST 10 L (15-37) U/L CK-MB (CK-2) 2.1 (0.5-3.6) ng/ml Troponin I < 0.015 < 0.015 (0-0.045) ng/ml 09/14/20 Range/Units 03:54 AST (15-37) U/L CK-MB (CK-2) (0.5-3.6) ng/ml Troponin I < 0.015 (0-0.045) ng/ml Coagulation 09/13/20 09/13/20 09/14/20 Range/Units 11:50 23:38 03:54 PT 10.9 (9.0-12.0) Seconds APTT 25.6 47.3 H* 58.4 H* (21.0-31.0) Seconds Lipids 09/14/20 Range/Units 03:54 Triglycerides 68 (0-150) mg/dl Cholesterol 244 H (0-200) mg/dl HDL Cholesterol 69 mg/dl Cholesterol/HDL Ratio 4 CBC 09/13/20 09/14/20 Range/Units 11:50 03:54 WBC 7.42 11.66 H (4.8-10.8) K/uL RBC 4.53 4.42 (4.2-5.4) M/uL Hgb 12.8 12.8 (12.0-16.0) g/dL Hct 37.3 37.2 (37-47) % Plt Count 246 259 (130-400) K/uL Neut # (Auto) 4.50 10.17 H (1.4-6.5) K/uL Lymph # (Auto) 1.87 1.14 L (1.2-3.4) K/uL [place] # (Auto) 0.55 0.31 (0.11-0.59) K/uL Eos # (Auto) 0.43 0.00 (0-0.5) K/uL Baso # (Auto) 0.05 0.01 (0-0.2) K/uL Comprehensive Metabolic Panel 09/13/20 09/14/20 Range/Units 11:50 03:54 Sodium 140 139 (136-145) mmol/L Potassium 3.4 L 4.1 D (3.5-5.1) mmol/L Chloride 108 H 109 H (98-107) mmol/L Carbon Dioxide 26 27 (21-32) mmol/L BUN 11 16 (7-18) mg/dl Creatinine 0.78 0.94 (0.6-1.2) mg/dl Glucose 189 H 229 H (70-99) mg/dl Calcium 8.8 8.4 L (8.5-10.1) mg/dl AST 10 L (15-37) U/L ALT 23 (12-78) U/L Alkaline Phosphatase 57 (45-117) U/L Total Protein 6.7 (6.4-8.2) gm/dl Albumin 3.0 L (3.4-5.0) gm/dl Intake and Output 09/13/20 09/14/20 09/14/20 22:59 06:59 14:59 Intake Total 336.5 / 907.5 571 / 907.5 191.5 / 191.5 Output Total 400 / 400 Balance -63.5 / 507.5 571 / 507.5 191.5 / 191.5 Intake: IV 36.5 / 207.5 171 / 207.5 191.5 / 191.5 HEPARIN SODIUM/DEXTROSE 25,000 36.5 / 207.5 171 / 207.5 191.5 / 191.5 units In 500 ml @ 1,500 UNITS/ HR 30 mls/hr IV .[id number] [facility] Rx #:[id number] Oral 300 / 700 400 / 700 Output: Urine 400 / 400 Other: # Unmeasured Voids 700 Weight 110.3 kg Weight Measurement Method Built in Bedscale (1) Chest pain Chest pain type: unspecified Qualified Code(s): R07.9 - Chest pain, unspecified
[2020-09-14] MEDS: HEPARIN SODIUM/DEXTROSE 25,000 UNITS/500 ML BAG IV SCH (12:14)
[2020-09-14] MEDS ORDERED: DOBUTamine HCL 12.5 MG/ML 20 ML VIAL IV ONE (12:33)
[2020-09-14] MEDS ORDERED: METOPROLOL TARTRATE 1 MG/ML VIAL IV ONE (12:33)
[2020-09-14] MEDS ORDERED: ATROPINE SULFATE 0.1 MG/ML 10ML SYR IV ONE (12:33)
[2020-09-14] MEDS ORDERED: PERFLUTREN LIPID MICROSPHERE (DEFINITY) IV ONE (13:42)
--- NOTE | 2020-09-14 14:14 | Pharmacy Report ---
Pharmacy Glycemic Short Note 2 - Date of Service September 14, 2020 - Glycemic Short BSG Results (Last 24 hours): 09/13/20 09/13/20 09/13/20 17:52 20:05 20:08 Glucose POC Glucose 283 H 383 H* 407 H* 09/13/20 09/14/20 09/14/20 22:26 00:18 00:20 Glucose POC Glucose 334 H* 358 H* 319 H* 09/14/20 09/14/20 09/14/20 02:31 03:54 04:07 Glucose 229 H POC Glucose 264 H 235 H 09/14/20 09/14/20 07:37 11:16 Glucose POC Glucose 151 H 134 H OUTPATIENT ANTIDIABETIC REGIMEN: * Basaglar 100 units HS, Novolog 6-10 units with meals MARBLE MASON only taking Novolog 30-50 units as prescription for basal insulin ASSESSMENT: * 55 year old admitted with chest pain/cardio workup. A1C >10% on admission. Type 2 diabetic, reports testing 3-4x daily. Per DM educator notes, patient just taking novolog at home as Rx for basal insulin . * Patient received total of 84 units of insulin yesterday, of which 28 were basal * Fasting BSG this AM 151 mg/dL - hold further basal, start basal again for HS. Patient NPO this AM * Received close to 40 units of correctional insulin overnight as BSGs elevated and also 15 units IV. Patient previously reporting 100 units of basaglar. Plan to cut dose in half and titrate up if needed. PLAN FOR INPATIENT GLYCEMIC CONTROL: * Hold outpatient oral diabetes medications * Basal insulin * Lantus 50 units HS * Bolus insulin * NovoLog per scale ACHS or Q6hrs while NPO * Goal Range: Low 110 mg/dL - High 140 mg/dL * Correction Factor: 15 mg/dL/unit * Nutritional / Prandial insulin per carb ratio of 1 unit per 5 grams CHO consumed PLAN FOR DISCHARGE: * A1c of 14.3% on admission. Goal <7% reasonable * DM educator met with patient. See their note for further details. However, patient had been not taking Basaglar prior to admission. Notes indicate that patient now has coverage for insulin. * Would recommend restarting basaglar on discharge, but at a reduced daily dosing to prevent hypoglycemia. (had previously been on 100 units/day of basaglar) Could consider ~30-40% decrease in basaglar dosing on discharge and would titrate as needed. Would resume Novolog 6-10 units with meals. * Patient following [facility]. Would defer titration of basaglar to outpatient provider. Feel that patient will likely need close monitoring with resuming basaglar.
--- NOTE | 2020-09-14 15:04 | Communication Note ---
Date of Service: September 14, 2020 Nonischemic dobutamine stress echocardiogram. Presenting symptoms of chest "squeezing "were not reproduced with pharmacologic stress. Recommend ongoing risk factor modification and blood pressure control. Atorvastatin 40 mg daily was added. Patient's can follow up with PCP for optimization of her cardiac risk factors, with recommendation to titrate her statin therapy for LDL goal of less than 70 mg/dL.
--- NOTE | 2020-09-14 15:12 | Electrocardiogram Report ---
Test Reason : Blood Pressure : / mmHG Vent. Rate : 087 BPM Atrial Rate : 087 BPM P-R Int : 142 ms QRS Dur : 078 ms QT Int : 386 ms P-R-T Axes : 069 069 062 degrees QTc Int : 464 ms Normal sinus rhythm Normal ECG When compared with ECG of 13-SEP-2020 11:25, Nonspecific T wave abnormality no longer evident in Inferior leads Confirmed by Abdiaziz Corley ([id number]) on 09/14/2020 3:12:00 PM Referred By: Baldev Morelos Confirmed By:Abdiaziz Corley
[2020-09-14 15:22] VITALS: PULSE 84; TEMP 98.1; O2SAT 96
--- NOTE | 2020-09-14 15:24 | Electrocardiogram Report ---
Test Reason : Blood Pressure : / mmHG Vent. Rate : 089 BPM Atrial Rate : 089 BPM P-R Int : 150 ms QRS Dur : 086 ms QT Int : 356 ms P-R-T Axes : 060 047 045 degrees QTc Int : 433 ms Normal sinus rhythm Normal ECG When compared with ECG of 13-SEP-2020 11:25, No significant change was found Confirmed by Abdiaziz Corley ([id number]) on 09/14/2020 3:24:20 PM Referred By: Baldev Morelos Confirmed By:Abdiaziz Corley
--- NOTE | 2020-09-14 17:52 | Communication Note ---
Date of Service: September 14, 2020 Pt with symptomatic high BP 171/108, received IV labetalol per prior PRN order. plan: change metoprolol to coreg. Add amlodipine 2.5 mg . Increase losartan to 100 mg in am tomorrow.
[2020-09-14] MEDS ORDERED: amLODIPine BESYLATE 5 MG TAB PO ONE (18:15)
--- NOTE | 2020-09-14 18:24 | Communication Note ---
Date of Service: September 14, 2020 By CMS guidelines, a determination that the admission or continued stay is not medically necessary has been made by a member of the UR committee and maninder brown for this hospital stay, therefore a Code 44 will be completed and the Inpatient admission will be changed to outpatient. Lukas Carpio MD
[2020-09-14 18:32] VITALS: BP 135/78
--- NOTE | 2020-09-14 18:32 | Communication Note ---
Date of Service: September 14, 2020 After review of the chart and discussion with the attending physician a determination has been made that continued hospitalization is not medically nece ssary. A code 44 is recommended and the patient has been changed to observation status. Catherine Ramesh DO, UR Director [employer].
--- NOTE | 2020-09-14 18:57 | Discharge Summary ---
Date of Service September 14, 2020 Admission HPI Per Admitting Provider Patient is a 55-year-old female with history of type 2 diabetes mellitus, Ashley's disease, diabetic neuropathy, rosacea, panic disorder, migraine, and generalized anxiety disorder, medical marijuana use, hypertension, hypothyroidism, H/O Left RCC S/P resection and other medical problems presents with history of ongoing intermittent chest pain since 2 days ago. Patient described chest pain as" clenching type, gripping", retrosternal in location, mostly dull uncomfortable pain, radiates to left arm, neck and ears, worsens with exertion and improved with nitroglycerin, rest. She admits to being noncompliant with her home medications since at least 4 months secondary to insurance issues. She also states having uncontrolled blood sugar levels while at home due to not taking her long-acting insulin. She reports nausea, associated dyspnea, dizziness with chest pain. She also states having bilateral leg pain since past 2 to 3 weeks duration. Chest pain improved with nitroglycerin while in ED but patient developed headache. Denies any history of palpitations, diaphoresis, cough, hemoptysis, fever, chills, fall, double/blurry vision, vomiting, abdominal pain, change in appetite, dysuria. Currently she only takes omeprazole, Novolog and Albuterol as needed. Admission Exam Per Admitting Provider General Appearance:Obese, no apparent distress Head: normocephalic, Atraumatic Eyes: normal inspection, EOMI Neck: supple, Trachea midline Respiratory/Chest: Normal breath sounds, CTA, No accessory muscle use Cardiovascular: S1, S2, No murmur Abdomen/GI:Soft, Non tender, Bowel sounds present Extremities/Musculoskelatal:normal inspection, Trace B/L LE edema Neurologic/Psych:AAOX3, grossly no focal neurological deficits Skin: normal color, warm Principal Diagnosis Chest pain likely secondary to hypertension Hyperglycemia, uncontrolled diabetes mellitus Tobacco use Discharge Exam General Appearance: Obese female laying in bed, no apparent distress Head: normocephalic, Atraumatic Eyes: normal inspection, EOMI Neck: supple, Trachea midline Respiratory/Chest: Normal breath sounds, CTA, No accessory muscle use Cardiovascular: RRR, S1, S2, No murmur Abdomen/GI:Soft, Non tender, Bowel sounds present Extremities/MSK:normal inspection, Trace B/L LE edema, moves extremities spontaneously Neurologic/Psych:AAOX3, speech fluent, no facial asymmetry, moves extremities spontaneously Skin: normal color, warm Discharge Data Allergies Allergy/AdvReac Type Severity Reaction Status Date / Time clindamycin Allergy Intermediate swelling Verified 09/13/20 14:12 Penicillins Allergy Intermediate swelling Verified 09/13/20 14:12 chlorhexidine Allergy Mild RASH Verified 09/13/20 14:12 adhesive Allergy Unknown RED SKIN Verified 09/13/20 14:12 Bactrim Allergy Unknown SWELLING Verified 06/03/17 05:03 Iodinated Contrast Media Allergy Unknown "CONTRAST Verified 09/13/20 14:12 DYE ALLERGY" sulfamethoxazole Allergy Unknown SWELLING Verified 09/13/20 14:12 trimethoprim Allergy Unknown SWELLING Verified 09/13/20 14:12 acetaminophen AdvReac Intermediate upset Unverified 09/13/20 14:12 stomach citric acid AdvReac Intermediate VOMITING Verified 09/13/20 14:12 morphine AdvReac Intermediate vomiting Unverified 09/13/20 14:12 and dizziness sodium bicarbonate AdvReac Intermediate VOMITING Verified 09/13/20 14:12 propoxyphene AdvReac Mild CRAMPING Verified 09/13/20 14:12 AND VOMITING aspirin AdvReac Unknown NAUSEATED Verified 09/13/20 14:12 codeine AdvReac Unknown DIZZINESS Verified 09/13/20 14:12 pseudoephedrine AdvReac Unknown DIZZINESS Verified 09/13/20 14:12 triprolidine AdvReac Unknown DIZZINESS Verified 09/13/20 14:12 Consultations 09/13/20 13:51 ED Decision to Admit Stat 09/13/20 16:38 Consult Cardiology Routine Ordered Studies 09/13/20 12:17 US venous doppler LE LT Stat IMPRESSION: No evidence of deep venous thrombus within the left lower extremity. 09/13/20 13:41 CT angio chest PE protocol Stat IMPRESSION: 1. There is no evidence of pulmonary embolus in the main, lobar, or segmental pulmonary arteries. 2. There is no airspace consolidation or pleural effusion. 3. There is a 1.4 cm peripherally calcified splenic artery aneurysm, unchanged from a previous abdominal CT scan. Diabetes Follow up Diabetes Follow-up Needed for HgbA1c >9% Hospital Course (1) Chest pain: Chest Pain: R/O ACS Risk factors: H/O HTN, DM II, Obesity Likely due to uncontrolled HTN EKG shows: Poor R wave progression, normal sinus rhythm CTA: No evidence of PE, consolidation, pleural effusion Troponin x3 - Negative repeat EKG - no repolarization/ ischemic changes Fasting lipid panel in AM- TC 244, TG 68, LDL 161, start Lipitor, goal LDL <70 Start Aspirin Obtained ECHO - mild concentric LVH. LV wall motion is normal. LVEF 65 to 60%. RV is normal in size and function. No significant valvular heart disease. Cardiology consult - plan for stress test today (09/14/20) -patient underwent dobutamine stress echo test - no inducible ischemia Hypertensive urgency Noncompliant with medications due to insurance Previously on losartan, clonidine, atenolol Currently not taking medications since 4 months We will start on losartan, Coreg, amlodipine -medication sent to patient's pharmacy Elevated D-dimer CTA no signs of PE Venous Dopplers negative for DVT Hypokalemia Replete electrolytes as needed Check magnesium levels Splenic artery aneurysm Incidental finding on CT scan Unchanged from prior abdominal CT Follow-up as outpatient DM II Diabetic neuropathy Last HbA1C: 9.9 on 12/15/15 Current Hb A1c 14.3% Noncompliant with medications secondary to insurance issues Previously on gabapentin, glipizide, NovoLog, Lantus Currently taking only NovoLog Poorly controlled Glycemic pharmacy consulted, train control technician consulted Pt will need close outpt follow up ISS, basal Insulin, Accu checks, Diabetic diet On discharge patient prescribed Basaglar KwikPen and NovoLog FlexPen, will need to be further titrated by primary care doctor or home health outreach coordinator 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 Previously on hydrocortisone 10 mg daily Panic disorder JORGE Medical marijuana use Currently not on any medication Mood is stable GERD Continue PPI Hypothyroidism Current TSH 0.67 Previously on levothyroxine 25 mcg daily Check TSH, free T4 H/O Left RCC S/P resection Total Time Total Time Spent Total Time Spent (In Minutes): 45 Total Time Includes: Examination of the Patient, Discharge Planning, Medication Reconciliation and Communication With Other Providers Discharge Plan Discharge Items Patient Disposition: Home - Self-Care Reason For Visit: CHEST PAIN Discharge Diagnosis: Chest pain likely secondary to hypertension Hyperglycemia, uncontrolled diabetes mellitus Tobacco use Activity: Per Instructions section Non-emergency contact: Primary Care Provider Call non-emergency contact if: you have any medication questions and your symptoms worsen Follow-up/Referrals: Baldev Morelos MD [Primary Care Provider] - 09/18/20 10:20 am (Date & Time 09/18/2020 10:20 AM Provider Meredith Desai PA-C Department Internal Medicine [facility] ) Diet: Carb Consistent or DM2 and Heart Healthy Addtl Attending Provider Instructions: Follow-up with your primary care doctor, appointment was scheduled for you for September 18. Several medications were prescribed for you, please take as advised and continue to follow-up with your primary care doctor. Your diabetes is uncontrolled, as we discussed, and it is important that you monitor your blood sugars and use insulin. Again, it is very important that you follow-up with your primary care physician as doses of your insulin will likely change. Lastly, it is strongly recommended that you quit using tobacco. You can call [employer], which is a free smoking cessation line. Pending Studies at Discharge: No Stand-Alone Forms: [facility] Impinj, Smoking Cessation Medications and DC Order Prescriptions: New amlodipine [Norvasc] 5 mg Tablet 2.5 mg PO QAM 30 Days Qty: 15 RF: 0 atorvastatin 40 mg Tablet 40 mg PO QAM 30 Days Qty: 30 RF: 0 carvedilol 3.125 mg Tablet 3.125 mg PO BID 30 Days Qty: 60 RF: 0 losartan 50 mg Tablet 100 mg PO QAM 30 Days Qty: 60 RF: 0 aspirin 81 mg Tablet,Delayed Release (Dr/Ec) 81 mg PO QAM 30 Days Qty: 30 RF: 0 Basaglar KwikPen U-100 Insulin 100 unit/mL (3 mL) insulin pen 30 unit subcut DAILY 30 Days Qty: 9 RF: 0 insulin aspart U-100 [Novolog Flexpen U-100 Insulin] 100 unit/mL (3 mL) insulin pen 6 unit subcut TID Qty: 3 RF: 0 Continued (DME) blood-glucose meter [Accu-Chek Taylor Plus Meter] misc See Dose Instructions .ROUTE .MEDSUPPLY Qty: 1 RF: 0 (DME) lancets [Easy Comfort Lancets] 30 gauge misc See Dose Instructions .ROUTE .MEDSUPPLY Qty: 25 RF: 0 omeprazole 20 mg capsule,delayed release(DR/EC) 20 mg PO QAM 30 Days Qty: 30 RF: 0 albuterol sulfate 90 mcg/actuation HFA aerosol inhaler 2 puffs inhalation Q6H PRN (Reason: Shortness Of Breath) 30 Days Qty: 1 RF: 0 insulin aspart U-100 100 unit/mL (3 mL) insulin pen 6 units subcut TIDM 30 Days Qty: 1.8 RF: 0 Discharge Orders: Discharge Order (Routine); Ordered 09/14/20 Ordered By: Víctor Carpio Admission Data Admit Date/Time: 09/13/20 14:06 Attending Provider: Víctor Carpio Admit Provider: Michael Nicole Primary Care Provider: Baldev Morelos Other Providers: Michael Nicole ; Rc Barrientos
[2020-09-14] MEDS ORDERED: INSULIN GLARGINE SOLOSTAR 100 UNITS/ML 3 ML PEN SC SCH ×2 (21:00)
[2020-09-14] MEDS ORDERED: carvediloL 3.125 MG TAB PO SCH (21:00)
--- NOTE | 2020-09-14 22:47 | Electrocardiogram Report ---
Test Reason : Blood Pressure : / mmHG Vent. Rate : 068 BPM Atrial Rate : 068 BPM P-R Int : 142 ms QRS Dur : 082 ms QT Int : 412 ms P-R-T Axes : 024 054 035 degrees QTc Int : 438 ms Normal sinus rhythm Possible Anterior infarct , age undetermined Abnormal ECG When compared with ECG of 13-SEP-2020 21:55, No significant change was found Confirmed by Abdiaziz Corley ([id number]) on 09/14/2020 10:46:32 PM Referred By: Baldev Morelos Confirmed By:Abdiaziz Corley
[2020-09-15] MEDS ORDERED: INSULIN ASPART 100 UNITS/ML 3 ML PEN SC SCH
[2020-09-15] MEDS ORDERED: LOSARTAN POTASSIUM 50 MG TAB PO SCH (09:00)
[2020-09-15] MEDS ORDERED: amLODIPine BESYLATE 5 MG TAB PO SCH (09:00)
== END 2020-09-14 18:44 | disposition home or self-care (01) ==
LOC: ED 11:20 → INTOOBSV 14:06 → SUATTDRO 14:06 → 2S 14:06
DX: I16.0 Hypertensive urgency; I72.8 Aneurysm of other specified arteries; K21.9 Gastro-esophageal reflux disease without esophagitis; Z88.6 Allergy status to analgesic agent; J45.909 Unspecified asthma, uncomplicated; E87.6 Hypokalemia; Z88.2 Allergy status to sulfonamides; Z68.35 Body mass index [BMI] 35.0-35.9, adult; Z88.0 Allergy status to penicillin; E66.9 Obesity, unspecified; Z79.4 Long term (current) use of insulin; Z79.899 Other long term (current) drug therapy; Z91.041 Radiographic dye allergy status; R07.9 Chest pain, unspecified; F17.210 Nicotine dependence, cigarettes, uncomplicated; E11.40 Type 2 diabetes mellitus with diabetic neuropathy, unspecified; E78.5 Hyperlipidemia, unspecified; I10 Essential (primary) hypertension; Z88.5 Allergy status to narcotic agent